=== PATIENT | male | born 1940 ===

== ENCOUNTER 2017-01-04 16:45 | Inpatient (IN) | payer OTHER, MEDICARE ==
[2017-01-04 16:45] VITALS: BMI 24.6
--- NOTE | 2017-01-04 17:47 | ED PDOC ---
Arrival/HPI - General Chief Complaint: Dizziness/Lightheaded Time Seen by Provider: 01/04/17 17:24 - History of Present Illness Narrative History of Present Illness (Text): 76 y/o M c history of MDS with platelets typically 40K, currently on antibiotics for cough p/w syncope. Patient was seen by Dr. Dominique today for throat discomfort and was prescribed a nasal spray. While waiting in line standing at the pharmacy for about 15 minutes, the patient suddenly felt lightheaded and lost consciousness. He awoke on the floor. He states he continues to feel lightheaded now. He denies pain, chest pain, palpitations, dyspnea, nausea, vomiting. Past Medical History - Infectious Disease Hx of Infectious Diseases: None - Tetanus Immunization Tetanus Immunization: Unknown - Cardiac Hx Hypertension: Yes - Pulmonary Hx Respiratory Disorders: No - Neurological Hx Neurological Disorder: No - HEENT Hx HEENT Disorder: No - Renal Hx Renal Disorder: No - Endocrine/Metabolic Hx Endocrine Disorders: No - Hematological/Oncological Hx Blood Transfusions: Yes Hx Blood Transfusion Reaction: Yes (PLATELETS) - Integumentary Hx Dermatological Disorder: No - Musculoskeletal/Rheumatological Hx Falls: No - Gastrointestinal Hx Gastrointestinal Disorders: No - Genitourinary/Gynecological Hx Genitourinary Disorders: Yes Other/Comment: KIDNEY STONE - Psychiatric Hx Psychophysiologic Disorder: No Hx Depression: No Hx Emotional Abuse: No Hx Physical Abuse: No Hx Substance Use: No - Past Surgical History Past Surgical History: No Previous - Surgical History Other/Comment: kidney stones - Anesthesia Hx Anesthesia: No Hx Anesthesia Reactions: No Hx Malignant Hyperthermia: No - Suicidal Assessment Feels Threatened In Home Enviroment: No Family/Social History Family/Social History: No Known Family HX Smoking Status: Never Smoked Hx Alcohol Use: Yes Hx Substance Use: No Hx Substance Use Treatment: No Allergies/Home Meds Allergies/Adverse Reactions: Allergies CONTRAST Allergy (Uncoded 12/20/16 16:35) SWELLING Home Medications: Home Meds Medication Instructions Recorded Confirmed Losartan/Hydrochlorothiazide 1 tab PO DAILY 09/26/12 12/14/16 [Hyzaar 100-12.5 Tablet] Amoxicillin 875 mg PO BID 01/05/17 01/05/17 Tobramycin [Tobrex] 2 drop OU BID 01/05/17 01/05/17 Review of Systems - Physician Review All systems were reviewed & negative as marked: Yes - Review of Systems Constitutional: absent: Fevers Cardiovascular: absent: Chest Pain Physical Exam - Physical Exam Narrative Physical Exam (Text): Constitutional: Appears weak, lightheaded. Head: Normocephalic. Atraumatic. Eyes: PERRL. ENT: Moist mucous membranes. Neck: Supple. Cardiovascular: Regular rate. Chest: No tenderness. Respiratory: Clear to auscultation bilaterally. GI: Soft. Nontender. Nondistended. Back: No CVA tenderness. Musculoskeletal: No tenderness or swelling of extremities. Skin: No rash. Neurologic: Alert, no focal deficit. Vital Signs Temp Pulse Resp BP Pulse Ox 01/04/17 22:45 98.7 F 76 20 114/59 L 94 L 01/04/17 17:26 98.1 F 85 18 120/62 100 Finger Stick Blood Glucose: 166 Medical Decision Making ED Course and Treatment: EKG NSR 93 bpm, no ST/T wave changes, no arrhythmia. Will obtain Head CT to rule out ICH especially due to thrombocytopenia. Will check labs and CXR for syncope. Dr. Hahn states she will consult on case. Admitting physician is Dr. Leija. Will sign out case to ER Night team at change of shift. Dr. Hahn will require a call back and Dr. Leija for admission. - Lab Interpretations Lab Results: 01/04/17 18:07 01/04/17 18:07 Lab Results 01/04/17 18:07: WBC 11.0 D, RBC 2.50 L, Hgb 8.1 L, Hct 23.4 L, MCV 93.6, MCH 32.4, MCHC 34.6, RDW 21.9 H, Plt Count 56 L, MPV 11.0, Gran % 81.1 H, Lymph % ( Auto) 11.3 L, [place] % (Auto) 7.3 H, Eos % (Auto) 0.1 L, Baso % (Auto) 0.2, Gran # 8.95 H, Lymph # 1.2, Brown # 0.8 H, Eos # 0.0, Baso # 0.02, PT 13.9 H, INR 1.29 H, APTT 33.8 H, Sodium 122 L, Potassium 3.5 L, Chloride 91 L, Carbon Dioxide 23, Anion Gap 12, BUN 15, Creatinine 0.8, Est GFR ( Amer) > 60, Est GFR (Non-Af Amer) > 60, Random Glucose 169 H, Calcium 8.3 L, Total Bilirubin 0.8, AST 38, ALT 29, Alkaline Phosphatase 120, Total Creatine Kinase 65, Troponin I < 0.01, Total Protein 8.6 H, Albumin 3.2, Globulin 5.4, Albumin/ Globulin Ratio 0.6 L 01/04/17 18:00: Blood Type O POSITIVE, Antibody Screen Negative, Crossmatch See Detail, BBK History Checked Patient has bt - RAD Interpretation Radiology Orders: 01/04/17 17:43 HEAD W/O CONTRAST [CT] Stat CHEST PORTABLE [RAD] Stat - Medication Orders Current Medication Orders: Albuterol/Ipratropium (Duoneb 3 Mg/0.5 Mg (3 Ml) Ud) 3 ml IH [id number] [facility] Last Admin: 01/05/17 10:16 Dose: Methylprednisolone (Solu-Medrol) 40 mg IV Q8 [facility] Last Admin: 01/05/17 08:35 Dose: 40 MG eMAR Start Stop Document 01/05/17 08:35 IBRAHIMA (Rec: 01/05/17 08:36 IBRAHIMA [id number]) Intravenous Solution Start Date 01/05/17 Start Time 08:35 End Date 01/05/17 End time 08:36 Total Infusion Time 1 Discontinued Medications Sodium Chloride (Sodium Chloride 0.9%) 1,000 mls @ 999 mls/hr IV .Q1H1M STA Stop: 01/04/17 21:56 Last Admin: 01/04/17 22:17 Dose: 999 MLS/HR eMAR Start Stop Document 01/04/17 22:17 EQ (Rec: 01/04/17 22:17 EQ [facility] [id number][place] Intravenous Solution Start Date 01/04/17 Start Time 22:17 Sodium Chloride (Hypertonic Saline 3%) 500 mls @ 40 mls/hr IV .[id number] [facility] Last Admin: 01/04/17 23:07 Dose: 40 MLS/HR eMAR Start Stop Document 01/04/17 23:07 LM (Rec: 01/04/17 23:08 LM [id number]) Intravenous Solution Start Date 01/04/17 Start Time 23:08 Ceftriaxone Sodium (Rocephin 1 Gram Ivpb) 100 mls @ 200 mls/hr IVPB STAT STA PRN Reason: Protocol Stop: 01/04/17 23:44 Last Admin: 01/05/17 00:31 Dose: 200 MLS/HR eMAR Start Stop Document 01/05/17 00:31 LM (Rec: 01/05/17 00:32 LM [id number]) Intravenous Solution Start Date 01/05/17 Start Time 00:31 End Date 01/05/17 End time 01:01 Total Infusion Time 30 Disposition/Present on Arrival - Present on Arrival Any Indicators Present on Arrival: No History of DVT/PE: No History of Uncontrolled Diabetes: No Urinary Catheter: No History of Decub. Ulcer: No History Surgical Site Infection Following: None - Disposition Have Diagnosis and Disposition been Completed?: Yes Diagnosis: Syncope, Hyponatremia Disposition: HOSPITALIZED Disposition Time: 19:00 Patient Problems: Current Active Problems Problem Status Diagnosed Fever Acute Hyponatremia Acute Symptomatic anemia Acute Syncope Acute Condition: GUARDED
[2017-01-04 18:08] LABS: ADD MANUAL DIFF? NO
[2017-01-04 18:12] LABS: BASO # 0.02 K/mm3 (0.0-2.0); BASO % 0.2 % (0.0-3.0); EOS % 0.1 % (1.5-5.0); GRAN # 8.95 (1.4-6.5); GRAN % 81.1 % (50.0-68.0); LYMPH # 1.2 (1.2-3.4); LYMPH % 11.3 % (22.0-35.0); MEAN CELL VOLUME 93.6 fL (80.0-105.0); MEAN CORPUSCULAR HEMOGLOBIN 32.4 pg (25.0-35.0); MEAN CORPUSCULAR HGB CONC 34.6 g/dl (31.0-37.0); MONO # 0.8 (0.1-0.6); MONO % 7.3 % (1.0-6.0); PLATELET COUNT 56 10^3/uL (120.0-450.0); RED CELL DISTRIBUTION WIDTH 21.9 % (11.5-14.5)
[2017-01-04 18:14] LABS: HEMATOCRIT 23.4 % (42.0-52.0)
[2017-01-04 18:23] LABS: ALB/GLOB RATIO 0.6 (1.1-1.8); ALKALINE PHOSPHATASE 120 U/L (38-133); ALT/SGPT 29 U/L (7-56); AST/SGOT 38 U/L (15-59); BILIRUBIN,TOTAL 0.8 mg/dL (0.2-1.3); BLOOD UREA NITROGEN 15 mg/dL (7-21); CALCIUM 8.3 mg/dL (8.4-10.5); CARBON DIOXIDE 23 mmol/L (21-33); CHLORIDE 91 mmol/L (98-107); GFR AFRICAN-AMERICAN > 60; GLUCOSE,RANDOM 169 mg/dL (70-110); POTASSIUM 3.5 mmol/L (3.6-5.0); SODIUM 122 mmol/L (132-148); TOTAL PROTEIN 8.6 g/dL (5.8-8.3)
[2017-01-04 18:28] LABS: INR 1.29 (0.93-1.08); PARTIAL THROMBOPLASTIN TIME 33.8 Seconds (23.7-30.8)
[2017-01-04 18:36] LABS: TROPONIN I < 0.01 ng/mL
--- NOTE | 2017-01-04 19:30 | CARD ---
APPROVED REPORT EKG Measurement Heart [id number] VT [id number] [id number] <Conclusion> Sinus rhythm with premature atrial complexes Otherwise normal ECG
[2017-01-04] MEDS ORDERED: Sodium Chloride 0.9% 1,000 ML IV STA (20:56)
--- NOTE | 2017-01-04 20:58 | ED PDOC ---
Physical Exam Vital Signs Reviewed: Yes Vital Signs Temp Pulse Resp BP Pulse Ox 01/04/17 17:26 98.1 F 85 18 120/62 100 Temperature: Afebrile Blood Pressure: Normal Pulse: Regular Respiratory Rate: Normal Appearance: Positive for: Well-Appearing, Non-Toxic, Comfortable Pain Distress: None Mental Status: Positive for: Alert and Oriented X 3 Finger Stick Blood Glucose: 166 Medical Decision Making ED Course and Treatment: 01/04/17 19:00 Case endorsed to me by Dr. Stern. Pt, past medical history of MDS, presented s/p syncopal episode while standing in line at pharmacy. Pt was being treated by ENT for a cough with antibiotics. Pending CT Head, hospital admission, re- assessment, and final disposition. 01/04/17 21:00 Reviewed radiology, CT Head shows: Suboptimal exam, secondary to motion artifact with no acute intracranial abnormality identified. Bilateral maxillary sinus fluid levels suggesting acute sinusitis. Case discussed with Dr. Leija, who is aware and agrees with plan. Accepts pt in to his service. Pt admitted to Telemetry for syncope and hyponatremic. Requests Dr. Jensen and Dr. Hahn on consult. - Lab Interpretations Lab Results: 01/04/17 18:07 01/04/17 18:07 Lab Results 01/04/17 18:07: WBC 11.0 D, RBC 2.50 L, Hgb 8.1 L, Hct 23.4 L, MCV 93.6, MCH 32.4, MCHC 34.6, RDW 21.9 H, Plt Count 56 L, MPV 11.0, Gran % 81.1 H, Lymph % ( Auto) 11.3 L, [place] % (Auto) 7.3 H, Eos % (Auto) 0.1 L, Baso % (Auto) 0.2, Gran # 8.95 H, Lymph # 1.2, [place] # 0.8 H, Eos # 0.0, Baso # 0.02, PT 13.9 H, INR 1.29 H, APTT 33.8 H, Sodium 122 L, Potassium 3.5 L, Chloride 91 L, Carbon Dioxide 23, Anion Gap 12, BUN 15, Creatinine 0.8, Est GFR ( Amer) > 60, Est GFR (Non-Af Amer) > 60, Random Glucose 169 H, Calcium 8.3 L, Total Bilirubin 0.8, AST 38, ALT 29, Alkaline Phosphatase 120, Total Creatine Kinase 65, Troponin I < 0.01, Total Protein 8.6 H, Albumin 3.2, Globulin 5.4, Albumin/ Globulin Ratio 0.6 L 01/04/17 18:00: Blood Type Pending, Antibody Screen Pending, BBK History Checked Patient has bt I have reviewed the lab results: Yes - RAD Interpretation Narrative RAD Interpretations (Text): CT Head shows: Brain: Mild volume loss. No acute hemorrhage. No acute infarct. Johnnie cisterna magna versus small para midline retrocerebellar arachnoid cyst. Ventricles: No hydrocephalus. Bones/joints: Unremarkable. No acute fracture. Soft tissues: Unremarkable. Vasculature: Calcification in the wall of the distal internal carotid arteries. Sinuses: Strandy septation-like densities in the maxillary sinus bilaterally with fluid levels. Mild maxillary and ethmoid sinus mucosal thickening. Mastoid air cells: Unremarkable as visualized. No mastoid effusion. IMPRESSION: Suboptimal exam, secondary to motion artifact with no acute intracranial abnormality identified. Radiology Orders: 01/04/17 17:43 HEAD W/O CONTRAST [CT] Stat CHEST PORTABLE [RAD] Stat Forestry Support Specialist: Radiologist - Medication Orders Current Medication Orders: Sodium Chloride (Sodium Chloride 0.9%) 1,000 mls @ 999 mls/hr IV .Q1H1M STA Stop: 01/04/17 21:56 Sodium Chloride (Hypertonic Saline 3%) 500 mls @ 40 mls/hr IV .[id number] HUANG Disposition/Present on Arrival - Present on Arrival Any Indicators Present on Arrival: No History of DVT/PE: No History of Uncontrolled Diabetes: No Urinary Catheter: No History of Decub. Ulcer: No History Surgical Site Infection Following: None - Disposition Have Diagnosis and Disposition been Completed?: Yes Diagnosis: Syncope, Hyponatremia Disposition: HOSPITALIZED Disposition Time: 21:13 Patient Plan: Admission Patient Problems: Current Active Problems Problem Status Diagnosed Fever Acute Symptomatic anemia Acute Condition: STABLE Discharge Instructions (ExitCare): Syncope (ED) Referrals: Rekha Solis MD [Primary Care Provider] - Follow up with primary
[2017-01-04] MEDS ORDERED: Sodium Chloride 0.9% 1,000 ML IV SCH (21:00)
[2017-01-04] MEDS ORDERED: Sodium Chloride 3% 500 ML IV SCH (21:15)
--- NOTE | 2017-01-04 23:07 | CP.PCM.PCO ---
Physician Communication Note - Physician Communication Note Physician Communication Note: Received aranesp 200mcg on 01/02/2017, 1 unit PRBC today. headCT neg bleed.
[2017-01-04] MEDS ORDERED: cefTRIAXone 1 gm 100 ML IVPB STA (23:15)
--- NOTE | 2017-01-05 01:05 | CP.PCM.PN ---
Subjective - Date & Time of Evaluation Date of Evaluation: 01/05/17 Time of Evaluation: 01:05 - Subjective Subjective: S:Patient was seen at bedside. Needs consent for blood transfusion. Has no complaints now. Pertinent medical record was reviewed. O: Last Vital Signs 3 Temp 98.7 F 01/04/17 22:45 Pulse 70 01/04/17 22:50 Resp 16 01/04/17 22:50 BP 112/63 01/04/17 22:50 Pulse Ox 98 01/04/17 22:50 Alert, oriented , not in distress. LUNGS:Normal breathing pattern. NEURO:Speech normal. A:Anemia. consent for blood transfusion. P:A consent for blood transfusion obtained in presence of nurse Kiarra after discussion. One unit PRBC now. Objective - Vital Signs/Intake and Output Vital Signs (last 24 hours): Temp Pulse Resp BP Pulse Ox 98.7 F 70 16 112/63 98 01/04/17 22:45 01/04/17 22:50 01/04/17 22:50 01/04/17 22:50 01/04/17 22:50 - Medications Medications: Current Medications Sodium Chloride (Hypertonic Saline 3%) 500 mls @ 40 mls/hr IV .[id number] HUANG Last Admin: 01/04/17 23:07 Dose: 40 mls/hr - Labs Labs: PT 13.9 Seconds (9.9-11.8) H 01/04/17 18:07 INR 1.29 (0.93-1.08) H 01/04/17 18:07 APTT 33.8 Seconds (23.7-30.8) H 01/04/17 18:07
--- NOTE | 2017-01-05 06:35 | HP ---
HISTORY OF PRESENT ILLNESS: The patient is a 76-year-old male. The patient was seen in the Emergency Room. He apparently had passed out in the pharmacy situated in the [facility]. The patient was brought to the Emergency Room. He was awake, but lethargic. The patient denies any injuries. His was with him at that time. PAST MEDICAL HISTORY: Hypertension. The patient is also treated for myelodysplastic syndrome. The patient has chronic lung disease with recurrent respiratory infections in the recent past. The patient also has history of hypertension, as mentioned. Has a past history of pneumonia. The patient also has a history of chronic anemia associated with myelodysplastic syndrome with thrombocytopenia. ALLERGIES: CONTRAST DYE, according to the history. MEDICATIONS: The patient's medication for blood pressure is losartan. PHYSICAL EXAMINATION: VITAL SIGNS: At this time, the pulse is 85, blood pressure 120/62, respirations 18, O2 sat 100%. The patient's temperature 98.1. HEENT: Head is normocephalic. No evidence of any masses or injury is noted. NECK: The thyroid is not enlarged. JVP is flat. Carotid pulses are present. No lymphadenopathy noted. LUNGS: Trachea central. Breath sounds vesicular. No adventitious sounds are heard. HEART: NSR. S1, S2 present. No murmurs heard. ABDOMEN: Soft. Liver, spleen not palpable. CENTRAL NERVOUS SYSTEM: The patient is conscious, lethargic, but no focal neurological deficit. LABORATORY DATA: The patient's blood work shows a hemoglobin 8.1. The patient' s recent hemoglobin done in the hospital a couple of weeks ago was 9.5. Patient 's white count 11,000. His platelet count 56,000. The patient's differential shows 81% polys. His chemistry is significant finding the sodium is 122, potassium 3.5. The patient's glucose is 169. His total protein 8.6. Urinalysis is not done at this time. OBJECTIVE: Patient has symptoms of chronic respiratory infection and sinusitis. The patient was seen by the ENT surgeon this afternoon, and the patient also has evidence of conjunctivitis in the right eye. The patient has a chronic cough which is productive ASSESSMENT/PLAN: At this time, the patient's infection could be the cause of the hyponatremia. His losartan/hctz could also be contributing to the hyponatremia. We will hold losartan/hctz and we will admit the patient to telemetry. We will give him antibiotics. Will have consultation with actuarial manager, wedding florist, plant puller, infectious disease, and manage the patient's clinical condition as we see. His troponin levels at the time of admission the Emergency Room was not significant. His overall prognosis is guarded. His condition is clinically in suspense because the etiology of the MDS is not known and also the patient has had recurrent admissions to the hospital with some respiratory infection, weakness, and anemia. His CT scan of the head does not reveal any pathology in the brain, but patient has evidence of a sinus infection with the fluid collection in the sinuses. Mervin Solis MD cc: [id number] TT: 01/05/2017 06:35:03 jn MTDD
[2017-01-05 06:49] LABS: PH,URINE 6.5 (4.7-8.0); URINE BILIRUBIN NEGATIVE (NEGATIVE); URINE BLOOD SMALL (NEGATIVE); URINE GLUCOSE (UA) NEGATIVE (NEGATIVE); URINE KETONE NEGATIVE (NEGATIVE); URINE LEUKOCYTE ESTERASE NEGATIVE Leu/uL (NEGATIVE); URINE PROTEIN NEGATIVE mg/dL (<30 mg/dL); URINE UROBILINOGEN 0.2 E.U./dL (<1 E.U./dL)
[2017-01-05 07:01] LABS: URINE APPEARANCE CLEAR (CLEAR); URINE COLOR YELLOW (YELLOW)
[2017-01-05 07:04] LABS: URINE BACTERIA TRACE (NEG); URINE EPITHELIAL CELLS 0 - 2 /hpf (0-5); URINE WBC 0 - 2 /hpf (0-6)
--- NOTE | 2017-01-05 07:12 | CT ---
PROCEDURE: CT HEAD WITHOUT CONTRAST. HISTORY: Trauma/fall, macro Medical thrombocytopenia. COMPARISON: 09/26/2012 TECHNIQUE: Axial computed tomography images were obtained through the head/brain without intravenous contrast. Radiation dose: Total exam DLP = 1451.69 mGy-cm. FINDINGS: HEMORRHAGE: No intracranial hemorrhage. BRAIN: No mass effect or edema. Cortical atrophy, periventricular small vessel disease VENTRICLES: Unremarkable. No hydrocephalus. CALVARIUM: Unremarkable. PARANASAL SINUSES: Bilateral, acute maxillary sinusitis. MASTOID AIR CELLS: Unremarkable as visualized. No inflammatory changes. OTHER FINDINGS: None. IMPRESSION: No acute intracranial abnormalities. No significant findings to account for the clinical presentation. Concordant results (preliminary interpretation) provided by [facility]. Procedure Completed: 20:09 Preliminary ([facility]) Report: Dictated and Authenticated: 20:42. Final Interpretation: 07:11. January 05, 2017.
--- NOTE | 2017-01-05 08:11 | CP.PCM.PN ---
Subjective - Date & Time of Evaluation Date of Evaluation: 01/05/17 Time of Evaluation: 07:50 - Subjective Subjective: Patient is seen this morning in room 261 bed 1. He is complaining of sore throat and cough. He also feels weak. He was given 1 unit of blood last night. Objective - Vital Signs/Intake and Output Vital Signs (last 24 hours): Temp Pulse Resp BP Pulse Ox 99.3 F 75 21 109/66 99 01/05/17 06:04 01/05/17 06:04 01/05/17 06:04 01/05/17 06:04 01/05/17 05:30 Intake and Output: 01/05/17 01/05/17 06:59 18:59 Intake Total 1180 Output Total 600 Balance 580 - Medications Medications: Current Medications Albuterol/Ipratropium (Duoneb 3 Mg/0.5 Mg (3 Ml) Ud) 3 ml IH [id number] HUANG Sodium Chloride (Hypertonic Saline 3%) 500 mls @ 40 mls/hr IV .[id number] HUANG Last Admin: 01/04/17 23:07 Dose: 40 mls/hr - Labs Labs: PT 13.9 Seconds (9.9-11.8) H 01/04/17 18:07 INR 1.29 (0.93-1.08) H 01/04/17 18:07 APTT 33.8 Seconds (23.7-30.8) H 01/04/17 18:07 - Constitutional Appears: No Acute Distress - Head Exam Head Exam: ATRAUMATIC, NORMOCEPHALIC - Respiratory Exam Respiratory Exam: Clear to Ausculation Bilateral, NORMAL BREATHING PATTERN - Cardiovascular Exam Cardiovascular Exam: +S1, +S2 - GI/Abdominal Exam GI & Abdominal Exam: Soft, Normal Bowel Sounds. absent: Tenderness - Neurological Exam Neurological Exam: Alert, Awake, Oriented x3 Assessment and Plan - Assessment and Plan (Free Text) Assessment: Syncope Hyponatremia Anemia MDS Sinusitis GERD Plan: Patient is seen this morning. He is still complaining of cough and sore throat. He says he went to the ENT doctor as outpatient and was told he had sinusitis and his sinuses were drained. He received IV rocephin last night. Consult infectious disease. He does have a low grade fever of 99.3. Patient will also have a pulmonary consult for the cough, as he has been having a persistent cough over the last few months. Patient passed out yesterday and was found to have a sodium of 122 in the ER. Hypertonic saline was given. Awaiting today's sodium level and nephrology consultation. Hemoglobin was 8 and patient was transfused 1 unit PRBC early this morning by Dr. Hahn, the superintendent pier, who is treating him for myelodysplastic syndrome. Awaiting today' s blood count.
--- NOTE | 2017-01-05 08:20 | RAD ---
HISTORY: syncope COMPARISON: Comparison is made to the previous study dated 01/02/2017 FINDINGS: LUNGS: Interval worsening of patchy opacities at both lungs since the previous exam. Findings suspicious for aspiration or infectious process. PLEURA: No significant pleural effusion identified, no pneumothorax apparent. CARDIOVASCULAR: Normal. OSSEOUS STRUCTURES: No significant abnormalities. VISUALIZED UPPER ABDOMEN: Normal. OTHER FINDINGS: None. IMPRESSION: Worsening patchy opacities in the lungs since the previous study.
[2017-01-05] MEDS: MethylPREDNISolone 40 mg Vial IV SCH ×3 (08:35→22:29)
[2017-01-05 09:03] LABS: ADD MANUAL DIFF? NO
[2017-01-05 09:07] LABS: BASO # 0.02 K/mm3 (0.0-2.0); BASO % 0.4 % (0.0-3.0); EOS % 0.2 % (1.5-5.0); GRAN # 3.55 (1.4-6.5); GRAN % 64.3 % (50.0-68.0); HEMATOCRIT 26.9 % (42.0-52.0); LYMPH # 1.6 (1.2-3.4); LYMPH % 28.4 % (22.0-35.0); MEAN CELL VOLUME 91.8 fL (80.0-105.0); MEAN CORPUSCULAR HEMOGLOBIN 31.4 pg (25.0-35.0); MEAN CORPUSCULAR HGB CONC 34.2 g/dl (31.0-37.0); MEAN PLATELET VOLUME 10.2 fl (7.0-11.0); MONO # 0.4 (0.1-0.6); MONO % 6.7 % (1.0-6.0); PLATELET COUNT 51 10^3/uL (120.0-450.0); RED CELL DISTRIBUTION WIDTH 21.2 % (11.5-14.5); WHITE BLOOD COUNT 5.5 10^3/ul (4.5-11.0)
[2017-01-05 09:34] LABS: ALB/GLOB RATIO 0.6 (1.1-1.8); ALKALINE PHOSPHATASE 99 U/L (38-133); ALT/SGPT 28 U/L (7-56); AST/SGOT 37 U/L (15-59); BILIRUBIN,TOTAL 1.1 mg/dL (0.2-1.3); BLOOD UREA NITROGEN 11 mg/dL (7-21); CALCIUM 8.5 mg/dL (8.4-10.5); CARBON DIOXIDE 24 mmol/L (21-33); CHLORIDE 99 mmol/L (98-107); GFR AFRICAN-AMERICAN > 60; GLUCOSE,RANDOM 133 mg/dL (70-110); POTASSIUM 3.9 mmol/L (3.6-5.0); SODIUM 133 mmol/L (132-148); TOTAL PROTEIN 8.6 g/dL (5.8-8.3)
[2017-01-05] MEDS: Albuterol-Ipratrop 3 mg / 0.5 (3 ml) UD IH SCH ×3 (10:16→19:38)
--- NOTE | 2017-01-05 10:19 | CON ---
DATE: 01/05/2017 REASON FOR CONSULTATION: Cough. REFERRING PHYSICIAN: Dr. Solis. HISTORY OF PRESENT ILLNESS: The patient is a 76-year-old male with past medical history significant for recurrent bronchitis, myelodysplastic syndrome, chronic anemia, chronic thrombocytopenia, hypertension, who presents to [facility] with increasing cough and sputum production for the past week. The patient is not short of breath at rest. However, he does state to mild dyspnea on exertion. There is no history of chest pain, coughing up of blood or chest pain -- made worse with deep respirations. There is no history of temperatures, chills or infectious exposure at home. However, the patient does have low-grade temperatures in the hospital. No history of night sweats, weight loss or appetite change prior to the above events. No history of leg or calf pains. The patient did have a syncopal episode yesterday. He states firmly that the syncopal episode was not preceded by a cough. No history of diaphoresis. No history of recent travel or trauma. REVIEW OF SYSTEMS: No history of nausea, vomiting or diarrhea. No acute urinary symptoms. No new musculoskeletal complaints. Rest of the review of systems is negative. ALLERGIES: IV CONTRAST. SOCIAL HISTORY: Positive for tobacco, negative for alcohol. FAMILY HISTORY: No inheritable diseases. HOME MEDICATIONS: Include amoxicillin, Tobrex, and Hyzaar. PHYSICAL EXAMINATION: GENERAL: The patient appears comfortable at rest. He is not short of breath. VITAL SIGNS: Temperature is 99.3, pulse 75, respirations 18/20, blood pressure 109/66. Oxygen saturation on nasal cannula is 99%. HEENT: Normocephalic, atraumatic. NECK: No JVD. CARDIOVASCULAR: Positive S1, S2. No S3. LUNGS: Scattered rhonchi and wheezing bilaterally. EXTREMITIES: No clubbing, cyanosis, or edema. Calves are nontender to palpation. GASTROINTESTINAL: Abdomen is soft, nontender, nondistended. Bowel sounds are positive. SKIN: No acute rash. NEUROLOGIC: Limited at the present time. PERTINENT LABORATORY DATA: Chest x-ray was done and reviewed. There is a small patchy infiltrate noted at the left lower lobe. CBC: White count 11.0, hemoglobin 8.1, hematocrit 23.4, platelets of 56,000. INR 1.29. Complete metabolic profile: Sodium 122, potassium 3.5, chloride 91, glucose 169, calcium 8.3, total protein 8.6. Rest of the metabolic profile is within normal limits. IMPRESSION: 1. Acute bronchitis. 2. Rule out pneumonia -- left lower lobe. 3. Syncope. 4. Myelodysplastic syndrome. 5. Anemia. 6. Thrombocytopenia. PLAN: The patient presents to [facility] with a 1-week history of worsening pulmonary symptoms. In addition, while at the pharmacy yesterday, he had a syncopal episode. He then presented to [facility] and was admitted for additional evaluation and treatment. I did review the chest x-ray as above. There appears to be a small patchy infiltrate noted at the left lower lobe. Dr. Hunter, infectious disease, has been called on the case. I will also order a stat procalcitonin level -- to help us discern whether we are dealing with an acute pneumonia or not. On physical exam, the patient is in moderate bronchospasm. I will continue with the current nebulizer treatments and add intravenous steroids this morning. Renal and hematology evaluations have been ordered. I would also consider a neurologic evaluation at this point in time. Repeat a.m. labs are pending. The patient does feel better this morning -- compared to the past few days. Additional pulmonary intervention will be based on the clinical status of the patient. I will discuss the above with Dr. Solis. Thank you very much for this pulmonary consultation. Jim Landry MD cc: [id number] TT: 01/05/2017 10:19:19 Confirmation # [id number] Dictation # [id number] jn MTDD
[2017-01-05 11:08] LABS: THYROID STIMULATING HORMONE 1.16 mIU/mL (0.46-4.68)
--- NOTE | 2017-01-05 11:58 | CON ---
DATE: 01/05/2017 The patient admitted for Dr. Solis. REFERRING PHYSICIAN: Dr. Solis. REASON FOR CONSULTATION: Evaluation of a patient unknown to me who presents with a syncopal episode and hyponatremia in the setting of excessive fluid intake and diuretic therapy. 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 The patient states that he was up and about and had a syncopal episode with no war adolph. He was brought to the Emergency Room, was found to have a sodium level of 122. He was admitte d for evaluation of syncope, perhaps worsening anemia secondary to his myelodysplastic syndrome and h yponatremia. The patient admits to excessive p.o. fluid intake. He denies any nausea, vomiting or d iarrhea. He was taking diuretic therapy. The patient was treated with normal saline and subsequentl y with 3% saline. His sodium level today is 133. No diagnostics were done. We are asked to evaluat e patient for his hyponatremia. PAST MEDICAL HISTORY: Significant for that of hypertension, reflux, myelodysplastic syndrome with an emia, history of chronic lung disease. MEDICATIONS: At home include that of amoxicillin, TobraDex and Hyzaar 100/12.5. ALLERGIES: THE PATIENT IS ALLERGIC TO CONTRAST/DYE. CURRENT MEDICATIONS IN HOSPITAL: Include that of albuterol, hypertonic saline at 40 mL an hour, Solu -Medrol. SOCIAL HISTORY: No history of cigarettes presently no history of alcohol use. The patient was a pas t cigarette smoker. FAMILY HISTORY: Father of chronic kidney disease. Mother of heart disease. REVIEW OF SYSTEMS: GENERAL: The patient states appetite and weight have been stable. ENT: Denies any hearing or visual problems. PULMONARY: Denies any shortness of breath at rest. History of chronic lung disease. No history of COPD, asthma, emphysema. CARDIAC: No known history of cardiac disease. GASTROINTESTINAL: No nausea, vomiting, no abdominal pain, no diarrhea, no constipation. GENITOURINARY: No history of chronic kidney disease. No history of prostate disease. ENDOCRINE: No history of diabetes. MUSCULOSKELETAL: No complaints. NEUROLOGIC: No complaints other than what is noted above, syncopal episode. No history of CVA, TIA, seizures. HEMATOLOGIC AND ONCOLOGIC: History of myelodysplastic syndrome with anemia. PSYCHIATRIC: History is negative. PHYSICAL EXAMINATION: GENERAL: The patient is currently seen on telemetry. He is in no acute distress, lying supine in be d 3% saline is infusing at 40 mL an hour. On telemetry, the patient remains in a sinus rhythm with A PCs. VITAL SIGNS: Blood pressure off blood pressure medication 109/66, temperature 99.3, respiratory rate 21 with a pulse of 75. HEENT: Normocephalic, atraumatic. Conjunctivae are pale. Sclerae are nonicteric. Pupils equal, re active to light and accommodation. Extraocular muscles are intact. Posterior pharynx is normal. NECK: Supple without neck vein distention. No thyromegaly, no lymphadenopathy, no bruits. CHEST: Clear to auscultation and percussion with no rhonchi or wheezing. No rales auscultated. CARDIOVASCULAR: Shows a regular rate and rhythm without murmurs, rubs, or gallops. ABDOMEN: Soft. Bowel sounds normal. No rebound, no guarding. No masses appreciated. BACK: No CVAT, no spinal tenderness. EXTREMITIES: Show no cyanosis, no clubbing or edema. Distal lower extremity pulses are 1+ to 2+ betty aterally. NEUROLOGIC: Shows him to be alert, oriented x 3 with no gross focal motor or sensory deficits noted. LABORATORY DATA AND IMAGING: Admitting head CT showed no acute changes. Admitting chest x-ray showe d bilateral infiltrates, likely chronic in nature. Admitting EKG showed a normal sinus rhythm with A PCs. Labs: CBC: White blood cell count 11.0, today 5.5, hemoglobin was 8.1, transfused up to a hem oglobin of 9.2. Platelet count is 51,000. Coags: PT 13.9, PTT 33.8. Chemistries: Sodium 122 on a dmission with a potassium of 3.5. Today, sodium is 133 with potassium of 3.9. The patient is status post IV fluid normal saline and currently receiving 3%. BUN is 11 with a creatinine of 0.7. Calciu m is 8.5. Glucose is 133. Liver enzymes are normal. Albumin is 3.1. Urines were sent on admission . Urine was negative. Urine electrolytes were not sent. ASSESSMENT: 1. Status post syncopal episode, etiology not entirely clear. The patient is being evaluated by his radiation oncologist. Perhaps syncopal episode related to anemia. No apparent cardiac event and no apparen t neurological event. It is unlikely that the hyponatremia is the cause of his syncope. 2. Hyponatremia. The patient appears to be euvolemic. There is no evidence for any gastrointestina l losses. No nausea, vomiting, no diarrhea. No polyuria. The patient states he is a copious fluid drinker, mostly water. He also had been on a blood pressure medication with a diuretic. Back in Novary of this year, the patient did have a sodium level of 130, but never as low as 122. For right n ow, it is safe to maintain patient off of diuretic therapy. When blood pressure medication is restar tone, perhaps he will go back on Cozaar instead of Hyzaar. I have cautioned patient to try and limit his p.o. fluid intake. Should his sodium level fall once again, I would order the diagnostics which would include a urine sodium, urine osmolality, serum uric acid. I will check his thyroid profile. 3. Hypertension. Blood pressure control is excellent. If anything, the patient is now borderline h ypotensive. Blood pressure medication is on hold. When the patient does restart blood pressure medi cation, he should not take a diuretic. 4. History of myelodysplastic syndrome with anemia. The patient is being followed by hematology. Mike kline is presently on steroids. He received 1 unit of packed red blood cells with an improvement in his hemoglobin. 5. Gastroesophageal reflux disease, currently stable. The patient is requiring no medication. 6. History of chronic lung disease. The patient has been seen and will be evaluated by pulmonary. It is unclear whether or not there is any acute infiltrate superimposed on his chronic lung disease. PLAN: 1. For right now, hold blood pressure medications and when blood pressure medication is restarted, amanda kline will not use a diuretic. Cozaar alone would suffice. 2. Check thyroid function profile. Check uric acid level. 3 Should his sodium drop, I will repeat his urine studies and this time check for urine sodium, urin e osmolality. 4. The patient may have 3% discontinued after infusion of whatever is remaining in the current bag. 5. P.o. fluid restriction. 6. Should patient cross tie turner to have SIADH and his sodium levels become low again and refractory to st andard measures, one can consider using tolvaptan 15 mg a day. 7. Continue to follow labs while an inpatient. 8. Continued workup for his syncopal episode. Thank you for letting me partake and share in the care of your patient. Faraz Hathaway MD cc: [id number] TT: 01/05/2017 11:58:22 Confirmation # [id number] Dictation # [id number] tn
--- NOTE | 2017-01-05 13:56 | CP.PCM.CON ---
History of Present Illness - History of Present Illness History of Present Illness: 6 year old male with PMH of HTN, GERD, myelodysplastic syndrome was recently admitted in [facility] because of sepsis from systemic viral illness , probably Influenza. The patient did well and went home. Patient has been having cough with clear phlegm for the past 2 days without fever or nausea. Yesterday, while waiting in line at a pharmacy for his prescriptions, he apparently fainted and lost consciousness. He denies headache or dizziness, no chest pain or palpitations, no note of convulsions, no bladder or bowel incontinence, no diarrhea, no dysuria, no hematuria, no sore throat, no rhinorrhea. In the ED, chest xray showed some infiltrates. Infectious Diseases consult is requested to further evaluate and manage. Review of Systems - Review of Systems All systems: reviewed and no additional remarkable complaints except (as per HPI ) Past Patient History - Infectious Disease Hx of Infectious Diseases: None - Tetanus Immunizations Tetanus Immunization: Unknown - Past Medical History & Family History Past Medical History?: Yes Pertinent Family History: HTN on both sides of the family - Past Social History Smoking Status: Never Smoked Alcohol: Occasional Drugs: Denies Home Situation {Lives}: With Family - CARDIAC Hx Hypertension: Yes - PULMONARY Hx Respiratory Disorders: No - NEUROLOGICAL Hx Neurological Disorder: No - HEENT Hx HEENT Problems: No - RENAL Hx Chronic Kidney Disease: No - ENDOCRINE/METABOLIC Hx Endocrine Disorders: No - HEMATOLOGICAL/ONCOLOGICAL Hx Blood Transfusions: Yes Hx Blood Transfusion Reaction: Yes (PLATELETS) - INTEGUMENTARY Hx Dermatological Problems: No - MUSCULOSKELETAL/RHEUMATOLOGICAL Hx Falls: Yes - GASTROINTESTINAL Hx Gastrointestinal Disorders: No - GENITOURINARY/GYNECOLOGICAL Hx Genitourinary Disorders: Yes Other/Comment: KIDNEY STONE - PSYCHIATRIC Hx Psychophysiologic Disorder: No Hx Depression: No Hx Emotional Abuse: No Hx Physical Abuse: No Hx Substance Use: No - SURGICAL HISTORY Other/Comment: kidney stones - ANESTHESIA Hx Anesthesia: No Hx Anesthesia Reactions: No Hx Malignant Hyperthermia: No Meds Allergies/Adverse Reactions: Allergies Allergy/AdvReac Type Severity Reaction Status Date / Time CONTRAST Allergy SWELLING Uncoded 12/20/16 16:35 - Medications Medications: Current Medications Albuterol/Ipratropium (Duoneb 3 Mg/0.5 Mg (3 Ml) Ud) 3 ml IH [id number] HUANG Sodium Chloride (Hypertonic Saline 3%) 500 mls @ 40 mls/hr IV .[id number] [facility] Last Admin: 01/04/17 23:07 Dose: 40 mls/hr Methylprednisolone (Solu-Medrol) 40 mg IV Q8 [facility] Last Admin: 01/05/17 08:35 Dose: 40 mg Physical Exam - Constitutional Appears: Non-toxic, No Acute Distress - Head Exam Head Exam: NORMAL INSPECTION - ENT Exam ENT Exam: Mucous Membranes Moist - Neck Exam Neck exam: Negative for: Lymphadenopathy, Meningismus - Respiratory Exam Respiratory Exam: Decreased Breath Sounds - Cardiovascular Exam Cardiovascular Exam: +S1, +S2 - GI/Abdominal Exam GI & Abdominal Exam: Soft. absent: Tenderness Results - Vital Signs Recent Vital Signs: Last Vital Signs Temp 99.3 F 01/05/17 06:04 Pulse 75 01/05/17 06:04 Resp 21 01/05/17 06:04 BP 109/66 01/05/17 06:04 Pulse Ox 99 01/05/17 05:30 - Labs Result Diagrams: 01/05/17 08:50 01/05/17 08:50 Labs: Laboratory Results - last 24 hr 01/05/17 06:30 Urine Color Yellow Urine Appearance Clear Urine pH 6.5 Ur Specific Reese 1.015 Urine Protein Negative Urine Glucose (UA) Negative Urine Ketones Negative Urine Blood Small H Urine Nitrate Negative Urine Bilirubin Negative Urine Urobilinogen 0.2 Ur Leukocyte Esterase Negative Urine RBC 1 - 3 Urine WBC 0 - 2 Ur Epithelial Cells 0 - 2 Urine Bacteria Trace Assessment & Plan - Assessment and Plan (Free Text) Plan: Assessment Consider healthcare-associated pneumonia in a patient with acute bronchitis Syncope, etiology to be determined S/P systemic viral illness with probable Influenza HTN GERD myelodysplastic syndrome Plan start patient on Cefepime and Doxycycline pending blood cx, Procalcitonin; reviewed CXR Will discuss with Dr. Landry Will follow clinically
[2017-01-05] MEDS: Cefepime 1gm in NS 100ml 100 ML IVPB SCH ×2 (15:47→22:28)
[2017-01-06] MEDS: Albuterol-Ipratrop 3 mg / 0.5 (3 ml) UD IH SCH ×4 (02:56→19:21)
[2017-01-06] MEDS: Cefepime 1gm in NS 100ml 100 ML IVPB SCH ×3 (05:05→21:59)
[2017-01-06] MEDS: MethylPREDNISolone 40 mg Vial IV SCH (05:06)
[2017-01-06 07:28] LABS: HEMATOCRIT 27.9 % (42.0-52.0); MEAN CELL VOLUME 91.5 fL (80.0-105.0); MEAN CORPUSCULAR HEMOGLOBIN 31.5 pg (25.0-35.0); MEAN CORPUSCULAR HGB CONC 34.4 g/dl (31.0-37.0); MEAN PLATELET VOLUME 11.4 fl (7.0-11.0); WHITE BLOOD COUNT 7.8 10^3/ul (4.5-11.0)
[2017-01-06 08:19] LABS: ALB/GLOB RATIO 0.6 (1.1-1.8); ALKALINE PHOSPHATASE 97 U/L (38-133); ALT/SGPT 20 U/L (7-56); AST/SGOT 33 U/L (15-59); BILIRUBIN,TOTAL 0.6 mg/dL (0.2-1.3); BLOOD UREA NITROGEN 18 mg/dL (7-21); CALCIUM 8.6 mg/dL (8.4-10.5); CARBON DIOXIDE 22 mmol/L (21-33); CHLORIDE 103 mmol/L (98-107); GFR AFRICAN-AMERICAN > 60; GLUCOSE,RANDOM 277 mg/dL (70-110); MAGNESIUM 1.9 mg/dL (1.7-2.2); PHOSPHOROUS 3.5 mg/dL (2.5-4.5); POTASSIUM 3.9 mmol/L (3.6-5.0); SODIUM 133 mmol/L (132-148); TOTAL PROTEIN 8.1 g/dL (5.8-8.3)
[2017-01-06] MEDS: MethylPREDNISolone 40 mg Vial IVP SCH ×2 (09:15→22:01)
--- NOTE | 2017-01-06 09:49 | PN ---
DATE: 01/06/2017 SUBJECTIVE: The patient appears very comfortable this morning. He is not short of breath at rest. PHYSICAL EXAMINATION: VITAL SIGNS: Temperature is 98.0, pulse 73, respirations 18, blood pressure 125 /73. Oxygen saturation on nasal cannula is 98%. HEENT: Normocephalic, atraumatic. No JVD. CARDIOVASCULAR: Positive S1, S2. No S3. LUNGS: Significant decrease in the rhonchi and wheezing bilaterally. EXTREMITIES: No clubbing, cyanosis, or edema. Calves are nontender to palpation. GASTROINTESTINAL: Abdomen is soft, nontender, nondistended. Bowel sounds are positive. SKIN: No acute rash. NEUROLOGIC: Limited at the present time. IMPRESSION: 1. Acute bronchitis. 2. Rule out pneumonia -- left lower lobe. 3. Syncope. 4. Myelodysplastic syndrome. 5. Anemia. 6. Thrombocytopenia. PLAN: The patient appears very comfortable this morning. He is not short of breath at rest. He states he is feeling much better overall. On physical exam , his bronchospasm is significantly less. In addition, the oxygen saturation on nasal cannula is 98%. I will continue with the current nebulizer treatments and decrease the intravenous steroids this morning. I would continue with the antibiotic coverage as per infectious disease. Input by Dr. Springer is noted. Interesting to note -- the procalcitonin is negative. However, I would still continue with the current antibiotic coverage.. Input by Dr. Hathaway (renal) is also noted. Clinical status of the patient is certainly improved -- compared to the initial presentation. I will discuss the above with Dr. Solis. Jim Landry MD cc: [phone] TT: 01/06/2017 09:48:34 Confirmation # [id number] Dictation # [id number] en MTDD
--- NOTE | 2017-01-06 10:22 | PN ---
DATE: 01/06/2017 The patient is a 76-year-old [place]ian male who was admitted to the hospital with cough, shortness of breath. The patient had a fall after syncope while trying to purchase medications from the pharmacy. The patient was brought to the Emergency Room and admitted for further evaluation and treatment. The patient is currently being treated for syncope. The patient is also getting treatment for severe bronchitis. PHYSICAL EXAMINATION: VITAL SIGNS: The pulse is 58, blood pressure is 126/72, temperature 97.3, respirations 20. LUNGS: There is bilateral rhonchi and basal crepitations. HEART: Normal sinus rhythm. ABDOMEN: Soft. Liver, spleen not palpable. CENTRAL NERVOUS SYSTEM: The patient has no focal deficit. The patient is undergoing investigation and treatment for myelodysplastic syndrome. The patient has history of chronic respiratory infection, hypertension. The patient was also found to have severe hyponatremia. LABORATORY DATA: Hemoglobin is 9.3. He had 1 unit of blood prescribed by the crop scout. The patient's chemistry: The blood sugar was 294, potassium was 3.9 and the sodium is up to 133 on admission. His sodium was 122. The patient seems to be improving clinically. We will continue current management. Pulmonology has recommended steroid treatment for his respiratory condition at this time. We will follow up. Mervin Solis MD cc: [phone] TT: 01/06/2017 10:22:37 Confirmation # [id number] Dictation # [id number] jenny CORMIER
--- NOTE | 2017-01-06 13:47 | CP.PCM.PN ---
Subjective - Date & Time of Evaluation Date of Evaluation: 01/06/17 Time of Evaluation: 09:25 - Subjective Subjective: Resting comfortably in bed, no fevers overnight, less cough, no shortness of breath at rest. Objective - Vital Signs/Intake and Output Vital Signs (last 24 hours): Temp Pulse Resp BP Pulse Ox 98.0 F 73 18 125/73 98 01/05/17 20:00 01/05/17 20:00 01/05/17 20:00 01/05/17 20:00 01/05/17 20:00 Intake and Output: 01/05/17 01/06/17 18:59 06:59 Intake Total 600 Output Total 450 Balance 150 - Medications Medications: Current Medications Albuterol/Ipratropium (Duoneb 3 Mg/0.5 Mg (3 Ml) Ud) 3 ml [facility]H [id number] [facility] Last Admin: 01/06/17 02:56 Dose: Not Given Doxycycline Hyclate (Doryx) 100 mg PO Q12 HUANG PRN Reason: Protocol Last Admin: 01/05/17 22:28 Dose: 100 mg Cefepime HCl (Maxipime 1gm) 100 mls @ 100 mls/hr IVPB Q8 [facility]ANG PRN Reason: Protocol Stop: 01/12/17 14:01 Last Admin: 01/06/17 05:05 Dose: 100 mls/hr Methylprednisolone (Solu-Medrol) 40 mg IV Q8 [facility] Last Admin: 01/06/17 05:06 Dose: 40 mg - Labs Labs: 01/05/17 08:50 01/05/17 08:50 PT 13.9 Seconds (9.9-11.8) H 01/04/17 18:07 INR 1.29 (0.93-1.08) H 01/04/17 18:07 APTT 33.8 Seconds (23.7-30.8) H 01/04/17 18:07 - Constitutional Appears: Non-toxic, No Acute Distress - Head Exam Head Exam: NORMAL INSPECTION - ENT Exam ENT Exam: Mucous Membranes Moist - Neck Exam Neck Exam: absent: Lymphadenopathy, Meningismus - Respiratory Exam Respiratory Exam: Decreased Breath Sounds - Cardiovascular Exam Cardiovascular Exam: +S1, +S2 - GI/Abdominal Exam GI & Abdominal Exam: Soft. absent: Tenderness Assessment and Plan - Assessment and Plan (Free Text) Plan: Assessment Consider healthcare-associated pneumonia (atypical) in a patient with acute bronchitis, slowly improving Syncope, etiology to be determined S/P systemic viral illness with probable Influenza HTN GERD myelodysplastic syndrome Plan will d/c Cefepime and continue Doxycycline (Day 2); blood cx are negative, Procalcitonin is only 0.10; reviewed CXR Reviewed Dr. Landry's evaluation and recommendations Will follow clinically
--- NOTE | 2017-01-06 15:27 | PN ---
DATE: 01/06/2017 SUBJECTIVE: The patient is currently seen, sodium was acceptable at 133. MEDICATIONS: List reviewed. The patient is currently on Doryx, DuoNeb, Maxipime, and Solu-Medrol. OBJECTIVE: INTAKE AND OUTPUT: 800 / ??. VS per chart. Exam unchanged. LABORATORY DATA AND IMAGING: CBC: White blood cell count 7.8 with a hemoglobin of 9.6. Platelet count is 61,000. Chemistries show normal electrolytes. Sodium 133, potassium 3.9, chloride 103 with a CO2 of 22. BUN is 18 with a creatinine of 0.6. Glucose is normal. ASS and PLAN: Status post hyponatremia. Hyponatremia was likely multifactorial. The patient appears to be euvolemic. No gastrointestinal losses. No nausea, vomiting or diarrhea. No polyuria. The patient states that he drinks large amounts of water. He was also on blood pressure medication with a diuretic. Sodium has improved from 122 up to 133. This with normal saline and hypertonic saline. The patient is currently off diuretic therapy and with fluid restriction. Hypertension. Blood pressure is controlled without the need for a diuretic. No Hyzaar. Acute bronchitis with possible pneumonia. Patient was evaluated by pulmonary and is felt to possibly have a superimposed pneumonia on top of bronchitis. Cont IVAB therapy. Faraz Hathaway MD cc: [id number] TT: 01/06/2017 14:56:13 Confirmation # [id number] Dictation # [id number] en MTDD
[2017-01-07] MEDS: Cefepime 1gm in NS 100ml 100 ML IVPB SCH ×3 (06:06→22:22)
[2017-01-07 07:17] LABS: HEMATOCRIT 27.8 % (42.0-52.0); MEAN CELL VOLUME 92.1 fL (80.0-105.0); MEAN CORPUSCULAR HEMOGLOBIN 31.1 pg (25.0-35.0); MEAN CORPUSCULAR HGB CONC 33.8 g/dl (31.0-37.0); MEAN PLATELET VOLUME 11.1 fl (7.0-11.0); RED CELL DISTRIBUTION WIDTH 21.3 % (11.5-14.5); WHITE BLOOD COUNT 12.2 10^3/ul (4.5-11.0)
[2017-01-07 07:41] LABS: ALB/GLOB RATIO 0.6 (1.1-1.8); ALKALINE PHOSPHATASE 91 U/L (38-133); ALT/SGPT 21 U/L (7-56); AST/SGOT 38 U/L (15-59); BILIRUBIN,TOTAL 0.4 mg/dL (0.2-1.3); BLOOD UREA NITROGEN 22 mg/dL (7-21); CALCIUM 8.7 mg/dL (8.4-10.5); CARBON DIOXIDE 23 mmol/L (21-33); CHLORIDE 100 mmol/L (95-110); GFR AFRICAN-AMERICAN > 60; POTASSIUM 4.4 mmol/L (3.6-5.0); SODIUM 129 mmol/L (132-148); TOTAL PROTEIN 7.7 g/dL (5.8-8.3)
[2017-01-07 07:56] LABS: GLUCOSE,RANDOM 321 mg/dL (70-110)
--- NOTE | 2017-01-07 07:56 | PN ---
DATE: 01/07/2017 SUBJECTIVE: The patient appears very comfortable at rest. He is not short of breath. PHYSICAL EXAMINATION: VITAL SIGNS: Temperature is 97.4, pulse 78, respirations 18/20, blood pressure 142/71. Oxygen saturation on nasal cannula is 98%. HEENT: Normocephalic, atraumatic. No JVD. CARDIOVASCULAR: Positive S1, S2. No S3. LUNGS: Minimal/less rhonchi. Very minimal/less wheezing. EXTREMITIES: No clubbing, cyanosis, or edema. Calves are nontender to palpation. GASTROINTESTINAL: Abdomen is soft, nontender, nondistended. Bowel sounds are positive. SKIN: No acute rash. NEUROLOGIC: Limited at the present time. IMPRESSION: 1. Acute bronchitis. 2. Rule out pneumonia -- left lower lobe. 3. Syncope. 4. Myelodysplastic syndrome. 5. Anemia. 6. Thrombocytopenia. PLAN: The patient appears very comfortable this morning. He is not short of breath at rest. He states he is feeling much, much better overall. On physical exam, his bronchospasm continues to resolve. In addition, the oxygen saturation on nasal cannula is now 98%. I will continue with the current nebulizer treatments and decrease the intravenous steroids this morning. I would continue with the antibiotic coverage as per infectious disease. Input by Dr. Springer is noted. The temperatures have now fully resolved. There is no leukocytosis. Renal evaluation is also noted. Clinical status of the patient is significantly improved overall. I would advise increasing his activity as tolerated. I will discuss the above with the attending physician. Jim Landry MD cc: [phone] TT: 01/07/2017 07:55:41 Confirmation # [id number] Dictation # [id number] saroj CORMIER
[2017-01-07] MEDS: Albuterol-Ipratrop 3 mg / 0.5 (3 ml) UD IH SCH ×3 (07:57→20:45)
--- NOTE | 2017-01-07 08:55 | PN ---
DATE: 01/07/2017 The patient is in room 369, bed 2, [facility] in [place]. This is a 76-year-old male. He was admitted with fever, cough, shortness of breath. The patient has past history of hypertension, myelodysplastic syndrome. The patient is seen this morning. He says he has insomnia, but he is feeling better as far as his weakness is concerned. The patient also had hypernatremia on evaluation of his blood in the Emergency Room. His sodium was 122. The patient is seen this morning. He is relatively comfortable. PHYSICAL EXAMINATION: VITAL SIGNS: His pulse is 73, blood pressure is 138/85, respirations are 20, O2 sat is 98%. His temperature 97.3. HEAD: Normocephalic. NECK: Thyroid is not enlarged. Carotid pulses are present. No lymphadenopathy. LUNGS: Trachea is central. Breath sounds are vesicular. No adventitious sounds; rhonchi heard bilaterally. HEART: Normal sinus rhythm, sinus bradycardia. Normal sinus rate. ABDOMEN: Soft. Liver, spleen not palpable. CENTRAL NERVOUS SYSTEM: No focal neurological deficits are noted at this time. LABORATORY DATA: Shows hemoglobin 9.4, white count of 12,200, platelet count of 81,000 which is higher than what it was when he came in it was 56,000. The patient's chemistry: The blood sugar has shown elevation' currently it is up to 321. The patient's sodium is 129. Albumin level is 2.8, globulin is 4.9. PLAN: The patient has hyponatremia with infection. 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 Will continue current management. The fluid is restricted by the hand glove cleaner. The patient is seen by Dr. Hahn, the political science chair. Infectious disease and youtuber are also seeing the patient. We will continue current management and add medication to help him sleep at night. Mervin Solis MD cc: [phone] TT: 01/07/2017 08:55:14 Confirmation # [id number] Dictation # [id number] CASA
[2017-01-07] MEDS: MethylPREDNISolone 40 mg Vial IVP SCH ×2 (10:24→22:21)
--- NOTE | 2017-01-07 10:41 | CP.PCM.PN ---
Subjective - Date & Time of Evaluation Date of Evaluation: 01/07/17 Time of Evaluation: 10:39 - Subjective Subjective: seen and examined still sob Objective - Vital Signs/Intake and Output Vital Signs (last 24 hours): Temp Pulse Resp BP Pulse Ox 97.3 F L 73 20 138/85 98 01/07/17 08:00 01/07/17 08:00 01/07/17 08:00 01/07/17 08:00 01/07/17 08:00 Intake and Output: 01/07/17 01/07/17 06:59 18:59 Intake Total 840 Output Total 700 Balance 140 - Medications Medications: Current Medications Acetaminophen (Tylenol 325mg Tab) 650 mg PO Q6H PRN PRN Reason: Headache Albuterol/Ipratropium (Duoneb 3 Mg/0.5 Mg (3 Ml) Ud) 3 ml IH [id number] HUANG Last Admin: 01/07/17 07:57 Dose: 3 ml Doxycycline Hyclate (Doryx) 100 mg PO Q12 HUANG PRN Reason: Protocol Last Admin: 01/07/17 10:23 Dose: 100 mg Cefepime HCl (Maxipime 1gm) 100 mls @ 100 mls/hr IVPB Q8 HUANG PRN Reason: Protocol Stop: 01/12/17 14:01 Last Admin: 01/07/17 06:06 Dose: 100 mls/hr Methylprednisolone (Solu-Medrol) 30 mg IVP Q12 HUANG Last Admin: 01/07/17 10:24 Dose: 30 mg - Labs Labs: 01/07/17 06:40 01/07/17 06:40 PT 13.9 Seconds (9.9-11.8) H 01/04/17 18:07 INR 1.29 (0.93-1.08) H 01/04/17 18:07 APTT 33.8 Seconds (23.7-30.8) H 01/04/17 18:07 - Constitutional Appears: Non-toxic - Head Exam Head Exam: ATRAUMATIC - Eye Exam Eye Exam: Normal appearance - ENT Exam ENT Exam: Normal Exam - Neck Exam Neck Exam: Normal Inspection - Respiratory Exam Additional comments: coarse bs - Cardiovascular Exam Cardiovascular Exam: +S1, +S2 - GI/Abdominal Exam GI & Abdominal Exam: Normal Bowel Sounds - Extremities Exam Additional comments: no edema - Back Exam Back Exam: NORMAL INSPECTION - Neurological Exam Neurological Exam: Awake, Oriented x3 - Psychiatric Exam Psychiatric exam: Normal Affect, Normal Mood - Skin Skin Exam: Normal Color Assessment and Plan - Assessment and Plan (Free Text) Assessment: Hyponatremia/ Pneumonia/ MDS/ Anemia / plan: Hypona: slightly lower today - suspect element of SIADH from PNA however - given hyperglycemia likely a dilutional component and given hx of MDS would like to also r/o pseudohyponatremia. Will check his Serum os, urine osm, urine lytes. Asked RN to contact primary regarding insulin to see if Na improves w/ better glycemic control Abx per primary/id
[2017-01-07] MEDS: Insulin Reg-MEDIUM-Coverage SC SCH ×3 (12:30→22:19)
--- NOTE | 2017-01-07 13:24 | PN ---
DATE: 01/07/2017 The patient is in bed in no acute distress, nontoxic. On exam, temperature is 98, blood pressure is 130/80, respiratory rate of 16. EXAMINATION OF HENT: Unremarkable. NECK: Supple. LUNGS: Have decreased breath sounds. HEART EXAMINATION: Normal S1, S2. ABDOMINAL EXAMINATION: Soft, nontender. LABORATORY EXAMINATION: Reveals a white count of 12,000, and hemoglobin of 9, and BUN of 22, creatin ine of 0.6. Urinalysis is noted. Chest x-ray is noted. Blood cultures are negative. Review of the orders reveals the patient is on p.o. doxycycline, and Solu-Medrol, and cefepime. ASSESSMENT AND PLAN: A 76-year-old male seen earlier in room 369 with a healthcare-associated atypic al pneumonia, acute bronchitis, improving syncope, with hypertension and gastroesophageal reflux dise ase, and myelodysplastic syndrome, and day #3 of antibiotics on doxycycline, and cefepime, Solu-Medro l. Will follow closely with you. Marcial Hunter MD cc: [id number] TT: 01/07/2017 13:23:47 Confirmation # [id number] Dictation # [id number] jn
[2017-01-08] MEDS: Albuterol-Ipratrop 3 mg / 0.5 (3 ml) UD IH SCH ×5 (01:55→21:00)
[2017-01-08 06:39] LABS: HEMATOCRIT 28.1 % (42.0-52.0); MEAN CELL VOLUME 92.7 fL (80.0-105.0); MEAN CORPUSCULAR HEMOGLOBIN 31.7 pg (25.0-35.0); MEAN CORPUSCULAR HGB CONC 34.2 g/dl (31.0-37.0); MEAN PLATELET VOLUME 10.7 fl (7.0-11.0); RED CELL DISTRIBUTION WIDTH 20.8 % (11.5-14.5); WHITE BLOOD COUNT 10.4 10^3/ul (4.5-11.0)
[2017-01-08] MEDS: Cefepime 1gm in NS 100ml 100 ML IVPB SCH (06:43)
--- NOTE | 2017-01-08 06:49 | PN ---
DATE: 01/08/2017 SUBJECTIVE: The patient appears comfortable this morning. He is not short of breath at rest. PHYSICAL EXAMINATION: VITAL SIGNS: Temperature is 97.5, pulse 68, respirations 18/20, blood pressure 127/68. Oxygen saturation on nasal cannula is 99%. HEENT: Normocephalic, atraumatic. No JVD. CARDIOVASCULAR: Positive S1, S2. No S3. LUNGS: Minimal rhonchi. Minimal/less wheezing. EXTREMITIES: No clubbing, cyanosis, or edema. Calves are nontender to palpation. GASTROINTESTINAL: Abdomen is soft, nontender, nondistended. Bowel sounds are positive. SKIN: No acute rash. NEUROLOGIC: Limited at the present time. IMPRESSION: 1. Acute bronchitis. 2. Rule out pneumonia - left lower lobe. 3. Syncope. 4. Myelodysplastic syndrome. 5. Anemia. 6. Thrombocytopenia. PLAN: The patient appears very comfortable this morning. He is not short of breath at rest. He states he is feeling much, much better overall. On physical exam, his bronchospasm continues to slowly resolve. In addition, the aveolar arterial gradient also continues to resolve. Oxygen saturation on nasal cannula is now 99%. I will continue with the current nebulizer treatments and current intravenous steroids (decreased yesterday) for now. I would continue with the antibiotic coverage as per infectious disease. Temperatures have resolved. There is a very mild leukocytosis -- which may be partly due to the steroids. Repeat a.m. labs are pending. Input by Dr. Hunter is noted. Clinical status of the patient is significantly improved -- compared to the initial presentation. I will discuss the above with the attending physician. Jim Landry MD cc: [id number] TT: 01/08/2017 06:49:03 Confirmation # [id number] Dictation # [id number] CASA
[2017-01-08 06:56] LABS: ALB/GLOB RATIO 0.6 (1.1-1.8); ALKALINE PHOSPHATASE 81 U/L (38-133); ALT/SGPT 36 U/L (7-56); AST/SGOT 52 U/L (15-59); BILIRUBIN,TOTAL 0.6 mg/dL (0.2-1.3); BLOOD UREA NITROGEN 21 mg/dL (7-21); CALCIUM 8.5 mg/dL (8.4-10.5); CARBON DIOXIDE 24 mmol/L (21-33); CHLORIDE 98 mmol/L (98-107); GFR AFRICAN-AMERICAN > 60; GLUCOSE,RANDOM 250 mg/dL (70-110); POTASSIUM 4.4 mmol/L (3.6-5.0); SODIUM 130 mmol/L (132-148); TOTAL PROTEIN 7.7 g/dL (5.8-8.3)
[2017-01-08] MEDS: Insulin Reg-MEDIUM-Coverage SC SCH ×4 (07:59→22:02)
--- NOTE | 2017-01-08 10:49 | PN ---
DATE: 01/08/2017 The patient is in room 369, bed 2, [facility] in [place]. The patient is a 76-year-old [place]oc[place] male. The patient was admitted with fever, cough and history of syncope. The patient has past history of myelodysplastic syndrome, hypertension. He is seen this morning. He is comfortable. He says he is improving. PHYSICAL EXAMINATION: VITAL SIGNS: This morning, his pulse is 60, blood pressure 148/90, respirations are 21, O2 sat is 99% on room air. HEENT: Head is normocephalic. LUNGS: Trachea central, breath sounds vesicular. No adventitious sounds. HEART: Normal sinus rhythm. S1, S2 present. ABDOMEN: Soft. Liver, spleen not palpable. CENTRAL NERVOUS SYSTEM: No focal deficit noted. The patient has consultation with Dr. Hahn, his basketball referee, Dr. Jensen, oil well drilling manager for hyponatremia. The patient is continuing antibiotic at this time and also pulmonary consult is done with Dr. Landry. The patient is placed on steroids for acute bronchitis and the blood sugar has been elevated. Insulin coverage is being provided for the patient. We will continue current management. His condition is clinically stable, but we will continue the antibiotics and all the medications for the patient. Mervin Solis MD cc: [phone] TT: 01/08/2017 10:48:57 Confirmation # [id number] Dictation # [id number] en MTDD
--- NOTE | 2017-01-08 10:59 | PN ---
DATE: 01/08/2017 The patient is in bed, in no acute distress, nontoxic. PHYSICAL EXAMINATION: VITAL SIGNS: Temperature is 97, blood pressure is 140/90, respiratory rate of 16. HEENT: Unremarkable. NECK: Supple. LUNGS: Have decreased breath sounds. HEART: Normal S1, S2. ABDOMEN: Soft, nontender. LABORATORY EXAMINATION: Reveals a white count of 10, hemoglobin of 9, platelets of 82. Chemistries are noted, BUN of 21, creatinine of 0.7. Urinalysis is noted. Microbiology reveals the blood cultur es are no growth, urine cultures are no growth. Dr. Landry's note is reviewed from this morning. ASSESSMENT AND PLAN: A 76-year-old male seen earlier this morning in room 369, healthcare-associated typical pneumonia with acute bronchitis, improving, and syncope and hypertension, gastroesophageal r eflux disease, myelodysplastic syndrome. Day #4 of doxycycline and cefepime. The patient is also on Solu-Medrol with a procalcitonin of 0.1, negative blood and urine culture. We will discontinue the cefepime and complete a short course of doxycycline. Today is day #4 of 7 days of doxycycline. The patient is also on Solu-Medrol. Marcial Hunter MD cc: [id number] TT: 01/08/2017 10:58:19 Confirmation # [id number] Dictation # [id number] en
[2017-01-08] MEDS: MethylPREDNISolone 40 mg Vial IVP SCH ×2 (11:26→22:00)
--- NOTE | 2017-01-08 15:03 | CP.PCM.CON ---
History of Present Illness - History of Present Illness History of Present Illness: Mr. Joel is a 76 year old male recently diagnosed with MDS when he presented with anemia, thrombocytopenia. BMA and biopsy was diagnostic of MDS, intermediate grade. He developed cough for 2 weeks. He received a course of Z- janki from Dr. Leija with no relief in cough. Low grade fever. He felt dizzy standing in pharmacy and was hospitalized. CT head was negative for bleed. FLu serologies negative. He is feeling weak and fatigued. Dry cough. No chest pain. No skin petechie or bleeding. Hb 8 gm/dl. Review of Systems - Constitutional Constitutional: As Per HPI, Fatigue, Lethargy, Malaise - EENT Eyes: absent: As Per HPI, Blind Spots, Blurred Vision, Change in Vision, Decreased Night Vision, Diplopia, Discharge, Dry Eye, Exophthalmos, Floaters, Irritation, Itchy Eyes, Loss of Peripheral Vision, Pain, Photophobia, Requires Corrective Lenses, Sees Flashes, Spots in Vision, Tunnel Vision, Other Visual Disturbances, Loss of Vision, Other Ears: absent: As Per HPI, Decreased Hearing, Ear Discharge, Ear Pain, Tinnitus, Abnormal Hearing, Disequilibrium, Dizziness, Other Nose/Mouth/Throat: Nasal Congestion - Cardiovascular Cardiovascular: absent: As Per HPI, Acrocyanosis, Chest Pain, Chest Pain at Rest , Chest Pain with Activity, Claudication, Diaphoresis, Dyspnea, Dyspnea on Exertion, Edema, Irregular Heart Rhythm, Pain Radiating to Arm/Neck/Jaw, Leg Edema, Leg Ulcers, Lightheadedness, Orthopnea, Palpitations, Paroxysmal Nocturnal Dyspnea, Pedal Edema, Radiating Pain, Rapid Heart Rate, Slow Heart Rate, Syncope, Other - Respiratory Respiratory: Cough, Dyspnea, Chest Congestion - Gastrointestinal Gastrointestinal: absent: As Per HPI, Abdominal Pain, Belching, Bloating, Change in Bowel Habits, Change in Stool Character, Coffee Ground Emesis, Constipation, Cramping, Diarrhea, Dyspepsia, Dysphagia, Early Satiety, Excessive Flatus, Fecal Incontinence, Heartburn, Hematemesis, Hematochezia, Loose Stools, Melena, Nausea, Odynophagia, Temesmus, Vomiting, Other - Genitourinary Genitourinary: absent: As Per HPI, Change in Urinary Stream, Difficulty Urinating, Dysuria, Flank Pain, Hematuria, Pyuria, Nocturia, Urinary Incontinence, Urinary Frequency, Urinary Hesitance, Urinary Urgency, Voiding Freq/Small Amts, Freq UTI, Hx Renal/Bladder Calculi, Hx /Renal Surgery, Bladder Distension, Other - Musculoskeletal Musculoskeletal: absent: As Per HPI, Abnormal Gait, Arthralgias, Atrophy, Back Pain, Deformity, Joint Swelling, Limited Range of Motion, Loss of Height, Muscle Cramps, Muscle Weakness, Myalgias, Neck Pain, Numbness, Radiating Pain into Limb, Stiffness, Tingling, Other - Integumentary Integumentary: absent: As Per HPI, Acne, Alopecia, Bleeding Lesions, Change in Hair, Change in Nails, Change in Pigmentation, Changing Lesions, Dry Skin, Erythema, Furuncle, Hirsutism, Lesions, New Lesions, Non-Healing Lesions, Photosensitivity, Pruritus, Rash, Skin Pain, Skin Ulcer, Sores, Striae, Swelling , Unusual Bruising, Wounds, Jaundice, Other - Psychiatric Psychiatric: absent: As Per HPI, Abnormal Sleep Pattern, Anhedonia, Anxiety, Auditory Hallucinations, Behavioral Changes, Change in Appetite, Change in Libido, Confusion, Depression, Difficulty Concentrating, Hallucinations, Homicidal Ideation, Hopelessness, Irritability, Memory Loss, Mood Swings, Panic Attacks, Paranoia, Suicidal Ideation, Visual Hallucinations, Tactile Hallucinations, Other - Endocrine Endocrine: absent: As Per HPI, Change in Body Appearance, Change in Libido, Cold Intolorance, Deepening of Voice, Excessive Sweating, Fatigue, Flushing, Heat Intolorance, Increase in Ring/Shoe/Hat Size, Palpitations, Polydipsia, Polyphagia, Polyuria, Other - Hematologic/Lymphatic Hematologic: As Per HPI Past Patient History - Infectious Disease Hx of Infectious Diseases: None - Tetanus Immunizations Tetanus Immunization: Unknown - Past Medical History & Family History Past Medical History?: Yes Past Family History: Reviewed and not pertinent - Past Social History Smoking Status: Never Smoked Alcohol: Occasional Drugs: Denies Home Situation {Lives}: With Family - CARDIAC Hx Hypertension: Yes - PULMONARY Hx Respiratory Disorders: No - NEUROLOGICAL Hx Neurological Disorder: No - HEENT Hx HEENT Problems: No - RENAL Hx Chronic Kidney Disease: No - ENDOCRINE/METABOLIC Hx Endocrine Disorders: No - HEMATOLOGICAL/ONCOLOGICAL Hx Blood Transfusions: Yes Hx Blood Transfusion Reaction: Yes (PLATELETS) - INTEGUMENTARY Hx Dermatological Problems: No - MUSCULOSKELETAL/RHEUMATOLOGICAL Hx Falls: Yes - GASTROINTESTINAL Hx Gastrointestinal Disorders: No - GENITOURINARY/GYNECOLOGICAL Hx Genitourinary Disorders: Yes Other/Comment: KIDNEY STONE - PSYCHIATRIC Hx Psychophysiologic Disorder: No Hx Depression: No Hx Emotional Abuse: No Hx Physical Abuse: No Hx Substance Use: No - SURGICAL HISTORY Other/Comment: kidney stones - ANESTHESIA Hx Anesthesia: No Hx Anesthesia Reactions: No Hx Malignant Hyperthermia: No Meds Allergies/Adverse Reactions: Allergies Allergy/AdvReac Type Severity Reaction Status Date / Time CONTRAST Allergy SWELLING Uncoded 12/20/16 16:35 - Medications Medications: Current Medications Acetaminophen (Tylenol 325mg Tab) 650 mg PO Q6H PRN PRN Reason: Headache Last Admin: 01/07/17 19:18 Dose: 650 mg Albuterol/Ipratropium (Duoneb 3 Mg/0.5 Mg (3 Ml) Ud) 3 ml IH [id number] HUANG Last Admin: 01/08/17 13:46 Dose: 3 ml Doxycycline Hyclate (Doryx) 100 mg PO Q12 HUANG PRN Reason: Protocol Last Admin: 01/08/17 09:11 Dose: 100 mg Insulin Human Regular (Humulin R Med) 0 units SC ACHS HUANG PRN Reason: Protocol Last Admin: 01/08/17 12:58 Dose: 5 units Methylprednisolone (Solu-Medrol) 30 mg IVP Q12 [facility] Last Admin: 01/08/17 11:26 Dose: 30 mg Physical Exam - Constitutional Appears: Non-toxic - Head Exam Head Exam: ATRAUMATIC, NORMAL INSPECTION, NORMOCEPHALIC - Eye Exam Eye Exam: Normal appearance Pupil Exam: NORMAL ACCOMODATION - ENT Exam ENT Exam: Mucous Membranes Moist - Neck Exam Neck exam: Positive for: Normal Inspection. Negative for: Full Rom, Lymphadenopathy, Meningismus, Tenderness, Thyromegaly - Respiratory Exam Respiratory Exam: Clear to Auscultation Bilateral, NORMAL BREATHING PATTERN - Cardiovascular Exam Cardiovascular Exam: REGULAR RHYTHM, +S1, +S2 - GI/Abdominal Exam GI & Abdominal Exam: Normal Bowel Sounds, Soft - Extremities Exam Extremities exam: Positive for: normal inspection, pedal pulses present. Negative for: calf tenderness, full ROM, joint swelling, normal capillary refill , pedal edema, tenderness - Back Exam Back exam: NORMAL INSPECTION - Neurological Exam Neurological exam: Alert, Altered, CN II-XII Intact, Normal Gait, Oriented x3, Reflexes Normal - Psychiatric Exam Psychiatric exam: Normal Affect, Normal Mood - Skin Skin Exam: Intact, Normal Color, Warm Results - Vital Signs Recent Vital Signs: Last Vital Signs Temp 97.3 F L 01/08/17 07:39 Pulse 61 01/08/17 07:39 Resp 21 01/08/17 07:39 BP 148/90 01/08/17 07:39 Pulse Ox 99 01/08/17 07:39 - Labs Result Diagrams: 01/08/17 06:00 01/08/17 06:00 Labs: Laboratory Results - last 24 hr 01/05/17 01/07/17 01/07/17 20:16 12:27 17:31 WBC RBC Hgb Hct MCV MCH MCHC RDW Plt Count MPV Sodium Potassium Chloride Carbon Dioxide Anion Gap BUN Creatinine Est GFR ( Amer) Est GFR (Non-Af Amer) POC Glucose (mg/dL) 307 H 356 H 385 H Random Glucose Calcium Total Bilirubin AST ALT Alkaline Phosphatase Total Protein Albumin Globulin Albumin/Globulin Ratio Urine Osmolality Ur Random Creatinine Ur Random Sodium Ur Random Potassium 01/07/17 01/08/17 01/08/17 21:56 06:00 07:08 WBC 10.4 RBC 3.03 L Hgb 9.6 L Hct 28.1 L MCV 92.7 MCH 31.7 MCHC 34.2 RDW 20.8 H Plt Count 82 L MPV 10.7 Sodium 130 L Potassium 4.4 Chloride 98 Carbon Dioxide 24 Anion Gap 12 BUN 21 Creatinine 0.7 Est GFR ( Amer) > 60 Est GFR (Non-Af Amer) > 60 POC Glucose (mg/dL) 348 H 262 H Random Glucose 250 H Calcium 8.5 Total Bilirubin 0.6 AST 52 ALT 36 Alkaline Phosphatase 81 Total Protein 7.7 Albumin 3.0 Globulin 4.7 Albumin/Globulin Ratio 0.6 L Urine Osmolality Ur Random Creatinine Ur Random Sodium Ur Random Potassium 01/08/17 01/08/17 09:30 13:30 WBC RBC Hgb Hct MCV MCH MCHC RDW Plt Count MPV Sodium Potassium Chloride Carbon Dioxide Anion Gap BUN Creatinine Est GFR ( Amer) Est GFR (Non-Af Amer) POC Glucose (mg/dL) Random Glucose Calcium Total Bilirubin AST ALT Alkaline Phosphatase Total Protein Albumin Globulin Albumin/Globulin Ratio Urine Osmolality 828 H Ur Random Creatinine 59 Ur Random Sodium 167 Ur Random Potassium 39.7 Assessment & Plan - Assessment and Plan (Free Text) Assessment: 1. Syncope 2. Acute Bronchitis 3. Anemia 4. Thrombocytopenia 5. MDS, intermediate grade 6. Hypertension 7. Acute sinusitis Plan: 1. Syncope, CT head negative for bleed. Discussed with ER physician. syncope likely due to fever, malaise. 2. Hb /hct low at 8 gm/dl. He received 200 mcgm Aranesp SQ 2 days ago. 1 unit of PRBC ordered. 3. Thrombocytopenia , due to MDS. Platelet count stable more than 50k. No indication for platelet transfusion now. Will monitor platelet count. 4. ID : acute sinusitis, patchy infiltrate in lung. WC is normal. Cefrtixone 1gm IV stat ordered. ID Dr. Yao consulted. 5. CV : hemodynamically stable. 6. Renal : BUN, creatinine normal. Discussed with the patient. discussed with the , ED physician, staff Nurse. Thank you Dr. Leija for allowing us to participate in his care. - Date & Time Date: 01/05/17 Time: 10:00
--- NOTE | 2017-01-08 15:15 | CP.PCM.PN ---
Subjective - Date & Time of Evaluation Date of Evaluation: 01/06/17 Time of Evaluation: 09:00 - Subjective Subjective: Feeling weak, fatigued. Cough improved. No chest pain. CXR showed patchy infiltrate. On IV antibiotics. Hb improved to 9.6 gm/dl, status post 1 unit of PRBC. Platelet count stable at 56k. No bleeding. Diziness resolved. CT head no bleed. apatite improved. No fever. Objective - Vital Signs/Intake and Output Vital Signs (last 24 hours): Temp Pulse Resp BP Pulse Ox 97.3 F L 61 21 148/90 99 01/08/17 07:39 01/08/17 07:39 01/08/17 07:39 01/08/17 07:39 01/08/17 07:39 Intake and Output: 01/08/17 01/08/17 06:59 18:59 Intake Total 360 480 Output Total 200 Balance 160 480 - Medications Medications: Current Medications Acetaminophen (Tylenol 325mg Tab) 650 mg PO Q6H PRN PRN Reason: Headache Last Admin: 01/07/17 19:18 Dose: 650 mg Albuterol/Ipratropium (Duoneb 3 Mg/0.5 Mg (3 Ml) Ud) 3 ml IH [id number] [facility] Last Admin: 01/08/17 13:46 Dose: 3 ml Doxycycline Hyclate (Doryx) 100 mg PO Q12 HUANG PRN Reason: Protocol Last Admin: 01/08/17 09:11 Dose: 100 mg Insulin Human Regular (Humulin R Med) 0 units SC ACHS HUANG PRN Reason: Protocol Last Admin: 01/08/17 12:58 Dose: 5 units Methylprednisolone (Solu-Medrol) 30 mg IVP Q12 [facility] Last Admin: 01/08/17 11:26 Dose: 30 mg - Labs Labs: 01/08/17 06:00 01/08/17 06:00 PT 13.9 Seconds (9.9-11.8) H 01/04/17 18:07 INR 1.29 (0.93-1.08) H 01/04/17 18:07 APTT 33.8 Seconds (23.7-30.8) H 01/04/17 18:07 - Constitutional Appears: Non-toxic - Head Exam Head Exam: ATRAUMATIC, NORMAL INSPECTION, NORMOCEPHALIC - Eye Exam Eye Exam: Conjunctival injection, Normal appearance - ENT Exam ENT Exam: Mucous Membranes Moist, Normal Oropharynx - Neck Exam Neck Exam: Full ROM, Normal Inspection - Respiratory Exam Respiratory Exam: Clear to Ausculation Bilateral, NORMAL BREATHING PATTERN - Cardiovascular Exam Cardiovascular Exam: REGULAR RHYTHM, +S1, +S2 - GI/Abdominal Exam GI & Abdominal Exam: Soft, Normal Bowel Sounds - Back Exam Back Exam: NORMAL INSPECTION - Neurological Exam Neurological Exam: Alert, Awake, CN II-XII Intact, Oriented x3 - Psychiatric Exam Psychiatric exam: Normal Affect, Normal Mood - Skin Skin Exam: Dry, Intact, Normal Color, Pallor, Warm. absent: Cyanosis, Diaphoretic, Erythema, Petechiae, Rash Assessment and Plan - Assessment and Plan (Free Text) Assessment: 1. MDS- anemia, thrombocytopenia : s/p one unit of PRBC. Hb stable. Platelet count improved to 61 k. No bleed. skin no petechie. S/P 200 mcgm Aranesp this week. Will continue to monitor blood counts. 2. Syncope : resolved. CT head negative. 3. CV : stable, 4. ID : sinusitis, patchy b/l lung infiltrate. on cefepime, doxy , ID following. 5. Pulmonary : cough improved. No bronchospasm. 6. Holly; BUN, creatinine normal. Lytes normal. Thank you Dr. Leija for allowing us to participate in his care.
--- NOTE | 2017-01-08 19:06 | CP.PCM.PN ---
Subjective - Date & Time of Evaluation Date of Evaluation: 01/08/17 Time of Evaluation: 19:03 - Subjective Subjective: seen and examined feels ok Objective - Vital Signs/Intake and Output Vital Signs (last 24 hours): Temp Pulse Resp BP Pulse Ox 98.1 F 71 22 139/81 99 01/08/17 17:04 01/08/17 17:04 01/08/17 17:04 01/08/17 17:04 01/08/17 17:04 Intake and Output: 01/08/17 01/09/17 18:59 06:59 Intake Total 480 Balance 480 - Medications Medications: Current Medications Acetaminophen (Tylenol 325mg Tab) 650 mg PO Q6H PRN PRN Reason: Headache Last Admin: 01/07/17 19:18 Dose: 650 mg Albuterol/Ipratropium (Duoneb 3 Mg/0.5 Mg (3 Ml) Ud) 3 ml IH [id number] HUANG Last Admin: 01/08/17 13:46 Dose: 3 ml Doxycycline Hyclate (Doryx) 100 mg PO Q12 HUANG PRN Reason: Protocol Last Admin: 01/08/17 09:11 Dose: 100 mg Insulin Human Regular (Humulin R Med) 0 units SC ACHS HUANG PRN Reason: Protocol Last Admin: 01/08/17 18:09 Dose: 7 units Methylprednisolone (Solu-Medrol) 30 mg IVP Q12 [facility] Last Admin: 01/08/17 11:26 Dose: 30 mg - Labs Labs: 01/08/17 06:00 01/08/17 06:00 PT 13.9 Seconds (9.9-11.8) H 01/04/17 18:07 INR 1.29 (0.93-1.08) H 01/04/17 18:07 APTT 33.8 Seconds (23.7-30.8) H 01/04/17 18:07 - Constitutional Appears: Non-toxic - Head Exam Head Exam: ATRAUMATIC - Eye Exam Eye Exam: Normal appearance - ENT Exam ENT Exam: Mucous Membranes Moist - Neck Exam Neck Exam: Normal Inspection - Respiratory Exam Additional comments: coarse bs b/l - Cardiovascular Exam Cardiovascular Exam: +S1, +S2 - GI/Abdominal Exam GI & Abdominal Exam: Normal Bowel Sounds - Extremities Exam Additional comments: no edema - Neurological Exam Neurological Exam: Alert, Oriented x3 - Psychiatric Exam Psychiatric exam: Normal Affect - Skin Skin Exam: Normal Color Assessment and Plan - Assessment and Plan (Free Text) Assessment: Hyponatremia/ Pnemonia/ /dm / mds plan: Urine lytes seem most consistent w/ siadh likely from intrapulmonary process but also likely a component of dilutional component for the sugars which have been consistently high. Was started on insulin which I will defer to primary. Continue abx per ID/Pulm.
[2017-01-09] MEDS: Albuterol-Ipratrop 3 mg / 0.5 (3 ml) UD IH SCH ×3 (07:58→20:04)
[2017-01-09] MEDS: Insulin Reg-MEDIUM-Coverage SC SCH ×4 (08:16→21:29)
--- NOTE | 2017-01-09 08:27 | PN ---
DATE: 01/09/2017 SUBJECTIVE: The patient appears very comfortable at rest. He is not short of breath. PHYSICAL EXAMINATION: VITAL SIGNS: Temperature is 98.1, pulse is 71, respirations 18, blood pressure 139/81. Oxygen saturation on nasal cannula is 99%. HEENT: Normocephalic, atraumatic. No JVD. CARDIOVASCULAR: Positive S1, S2. No S3. LUNGS: Very minimal/less rhonchi. No wheezing. EXTREMITIES: No clubbing, cyanosis, or edema. Calves are nontender to palpation. GASTROINTESTINAL: Abdomen is soft, nontender, nondistended. Bowel sounds are positive. SKIN: No acute rash. NEUROLOGIC: Limited at the present time. IMPRESSION: 1. Acute bronchitis. 2. Rule out pneumonia -- left lower lobe. 3. Syncope. 4. Myelodysplastic syndrome. 5. Anemia. 6. Thrombocytopenia. PLAN: The patient appears very comfortable this morning. He is not short of breath at rest. He states he is feeling much, much better overall. On physical exam, his bronchospasm continues to resolve. In addition, the alveolar -arterial gradient also continues to resolve. Oxygen saturation on nasal cannula is now 99%. I will continue with the current nebulizer treatments and change to oral steroids this morning. The patient remains on antibiotic therapy -- as per infectious disease. Temperatures have fully resolved. The leukocytosis has also fully resolved. Renal evaluation is also ongoing. Inputs are noted. Clinical status of the patient is significantly improved. He is advised to increase his activity as tolerated. I will discuss the above with the attending physician. Jim Landry MD cc: [id number] TT: 01/09/2017 08:26:37 Confirmation # [id number] Dictation # [id number] en MTDD
--- NOTE | 2017-01-09 09:47 | PN ---
DATE: 01/09/2017 The patient is a 76-year-old male. The patient is in room 369, bed 2. He was admitted with fever, hyponatremia, anemia (myelodysplastic syndrome), syncope. The patient has a history of pneumonia in the past, hypertension. ALLERGIES: THE PATIENT HAS ALLERGY TO CONTRAST DYE. He is seen this morning. He is clinically improving. He was on IV antibiotics. He is currently on p.o. doxycycline. The patient's steroids were discontinued from IV steroid to oral steroid. Now, he is on 40 mg of prednisone daily. PHYSICAL EXAMINATION: VITAL SIGNS: The blood pressure is 139-140/80. The patient's pulse is 71, respirations are 22. The patient is on 2 liters of oxygen. HEAD: Normocephalic. LUNGS: Clear. HEART: Normal sinus rhythm. ABDOMEN: Soft. Liver, spleen not palpable. CENTRAL NERVOUS SYSTEM: No focal deficits. MEDICATIONS: Consist of prednisone 40 mg daily, insulin coverage for hyperglycemia induced by steroid. The patient is on DuoNeb, doxycycline. The patient's last hemoglobin was 9.6, his white count is 10,400. We will continue current management and followup. Mervin Solis MD cc: [phone] TT: 01/09/2017 09:46:31 Confirmation # [id number] Dictation # [id number] en MTDD
--- NOTE | 2017-01-09 14:32 | CP.PCM.PN ---
Subjective - Date & Time of Evaluation Date of Evaluation: 01/09/17 Time of Evaluation: 10:10 - Subjective Subjective: Comfortable, afebrile overnight, no acute events overnight, feeling better. Objective - Vital Signs/Intake and Output Vital Signs (last 24 hours): Temp Pulse Resp BP Pulse Ox 98.2 F 66 20 155/87 H 100 01/09/17 06:00 01/09/17 06:00 01/09/17 06:00 01/09/17 06:00 01/09/17 06:00 Intake and Output: 01/09/17 01/09/17 06:59 18:59 Intake Total 720 240 Output Total 450 Balance 720 -210 - Medications Medications: Current Medications Acetaminophen (Tylenol 325mg Tab) 650 mg PO Q6H PRN PRN Reason: Headache Last Admin: 01/07/17 19:18 Dose: 650 mg Albuterol/Ipratropium (Duoneb 3 Mg/0.5 Mg (3 Ml) Ud) 3 ml IH [id number] HUANG Last Admin: 01/09/17 07:58 Dose: 3 ml Doxycycline Hyclate (Doryx) 100 mg PO Q12 HUANG PRN Reason: Protocol Last Admin: 01/08/17 22:00 Dose: 100 mg Insulin Human Regular (Humulin R Med) 0 units SC ACHS HUANG PRN Reason: Protocol Last Admin: 01/09/17 08:16 Dose: 3 units Prednisone (Prednisone Tab) 40 mg PO DAILY HUANG - Labs Labs: 01/08/17 06:00 01/08/17 06:00 PT 13.9 Seconds (9.9-11.8) H 01/04/17 18:07 INR 1.29 (0.93-1.08) H 01/04/17 18:07 APTT 33.8 Seconds (23.7-30.8) H 01/04/17 18:07 - Constitutional Appears: Non-toxic, No Acute Distress - Head Exam Head Exam: NORMAL INSPECTION - Respiratory Exam Respiratory Exam: Decreased Breath Sounds - Cardiovascular Exam Cardiovascular Exam: +S1, +S2 - GI/Abdominal Exam GI & Abdominal Exam: Soft. absent: Tenderness Assessment and Plan - Assessment and Plan (Free Text) Plan: Assessment Consider healthcare-associated pneumonia (atypical) in a patient with acute bronchitis, clinically improving Syncope, etiology to be determined S/P systemic viral illness with probable Influenza HTN GERD myelodysplastic syndrome Plan continue Doxycycline (Day 5) to complete a 5-7 day course; blood cx are negative , Procalcitonin is only 0.10; reviewed CXR Reviewed Dr. Landry's evaluation and recommendations Will continue to follow clinically
--- NOTE | 2017-01-09 15:22 | PN ---
DATE: 01/09/2017 SUBJECTIVE: The patient is seen sitting in chair. He is awake. He is alert. He is comfortable. H e denies any chest pain. Denies any shortness of breath. Denies any cough. PHYSICAL EXAMINATION: GENERAL: Elderly male sitting in chair. VITAL SIGNS: Blood pressure 155/87, heart rate 66, respiratory rate 20, temperature 98.2. HEENT: Normocephalic, atraumatic. NECK: Supple, no JVD. LUNGS: Bilateral equal air entry, no rales. CARDIAC: S1, S2, regular rate and rhythm, no murmur, no rub. ABDOMEN: Soft, nondistended, nontender, bowel sounds present. EXTREMITIES: No lower extremity edema. INTAKE AND OUTPUT: 240/450. LABORATORY DATA: WBC 10, hemoglobin 9.6, hematocrit 28, platelets 82. Sodium 130, potassium 4.4, ch loride 98, CO2 of 24, BUN 21, creatinine 0.7, glucose 250, calcium 8.5, albumin 3.0. Urine sodium 16 7, urine creatinine 59. CURRENT MEDICATIONS: Doxycycline, insulin, prednisone, Tylenol, Solu-Medrol. ASSESSMENT AND PLAN: 1. Hyponatremia, suspect syndrome of inappropriate antidiuretic hormone secondary to hydrochlorothia zide. 2. Hypertension, well controlled at this time off Hyzaar. Will discontinue hydrochlorothiazide and start Cozaar. 3. Acute bronchitis. 4. Chronic obstructive pulmonary disease. PLAN: 1. Start Cozaar 50 mg daily. 2. Keep off hydrochlorothiazide. 3. Taper steroids as feasible. 4. Monitor sodium. Cami Jensen MD cc: [id number] TT: 01/09/2017 15:21:46 Confirmation # [id number] Dictation # [id number] mn
[2017-01-09 18:03] VITALS: PULSE 81
[2017-01-10] MEDS: Albuterol-Ipratrop 3 mg / 0.5 (3 ml) UD IH SCH ×3 (01:16→13:31)
[2017-01-10] MEDS: Insulin Reg-MEDIUM-Coverage SC SCH (08:00)
--- NOTE | 2017-01-10 08:09 | PN ---
DATE: 01/09/2017 SUBJECTIVE: He is sitting comfortably in chair, feels fatigued. has bilateral infiltrate on chest x-ray. He is currently on IV antibiotics with cefepime and doxycycline. No cough. Conjunctivitis on the right eye, resolved. No abdominal pain. No nausea. No vomiting. Blood counts have improved. Platelet count improved to 80,000, likely due to use of IV steroids. Hemoglobin and hematocrit stable. White count is normal. His appetite has improved. Ambulating in the room. REVIEW OF SYSTEMS: As per HPI. The rest of 12-point review of systems reviewed and negative. PHYSICAL EXAMINATION: VITAL SIGNS: Afebrile. Temperature is 97.8, heart rate is 80 per minute, blood pressure 139/83, respiratory rate 20 per minute, oxygen saturation 98% on oxygen by nasal cannula. HEENT: Normal. NECK: No lymphadenopathy. CHEST: Air entry present, equal bilateral. No added sound. CARDIOVASCULAR: S1, S2 normal. No murmur. No gallop. ABDOMEN: Soft, nontender. No hepatosplenomegaly. EXTREMITIES: No edema. SPINE: No tenderness. SKIN: No petechia. No rash. CENTRAL NERVOUS SYSTEM: Alert, oriented x 3. No focal sensory motor deficit. LABORATORY DATA: White count 10.4, hemoglobin 9.6, hematocrit 21.1, platelet count 82,000. Sodium 130, potassium 4.4, BUN 21, creatinine 0.7, glucose 250. MEDICATIONS: Tylenol 650 q. 6 hours p.r.n., DuoNeb 3 mL q. 6 hours p.r.n., doxycycline 100 mg p.o. q. 12 hours, insulin as per sliding, prednisone 40 mg daily. ASSESSMENT: 1. Myelodysplastic syndrome, intermediate grade. 2. Anemia. 3. Thrombocytopenia. 4. Bilateral pneumonia. 5. Hypertension. 6. Hyperglycemia. 7. Hyponatremia. 8. Syncope. PLAN: 1. He received 1 unit of blood transfusion since admission. Hemoglobin is stable at 9.6 g/dL. We will continue to follow. He received Aranesp last week , 200 mcg. The dose is 200 mcg every 2 weeks. He is not due for Aranesp this week. Platelet count improved to 82,000, likely due to steroid use. We will continue to monitor blood counts. 2. Hyponatremia, improved. Sodium improved to 130. 3. He has bilateral pneumonia, currently on IV antibiotic. Cough improved He also had acute sinusitis and conjunctivitis. 4. Hypertension controlled on current medications. 5. He is hyperglycemic likely due to steroid use. reviewed ID, Dr. Smith. Reviewed nephrology, Dr. Jensen, and pulmonary, Dr. Landry's note. Thank you, Dr. Leija, for allowing us to participate in the patient's care. Staci Hahn MD cc: [id number] TT: 01/10/2017 02:20:18 Confirmation # [id number] Dictation # [id number] saroj MTDD
[2017-01-10 09:45] VITALS: BP 143/89; RESP 19; TEMP 98; O2SAT 100
--- NOTE | 2017-01-10 10:07 | PN ---
DATE: 01/10/2017 PULMONARY NOTE SUBJECTIVE: The patient appears very comfortable this morning. He is not short of breath at rest. OBJECTIVE: VITAL SIGNS: Temperature is 97.8, pulse 81, respirations 18, blood pressure 139 /83. Oxygen saturation on nasal cannula is 98-100%. HEENT: Normocephalic, atraumatic. No JVD. CARDIOVASCULAR: Positive S1, S2. No S3. LUNGS: Clear bilaterally. EXTREMITIES: No clubbing, cyanosis, or edema. Calves are nontender to palpation. GASTROINTESTINAL: Abdomen is soft, nontender, nondistended. Bowel sounds are positive. SKIN: No acute rash. NEUROLOGIC: Limited at the present time. IMPRESSION: 1. Acute bronchitis. 2. Rule out pneumonia - left lower lobe. 3. Syncope. 4. Myelodysplastic syndrome. 5. Anemia. 6. Thrombocytopenia. PLAN: The patient appears very comfortable this morning. He is not short of breath at rest. He states he is feeling much, much better overall. On physical exam, his lungs are now clear. Oxygen saturation on nasal cannula is 98-100%. I will continue with the current nebulizer treatments and oral steroids (changed yesterday) for now. The patient remains on antibiotic therapy. Input by infectious disease (Dr. Springer) is noted. Temperatures have fully resolved. The leukocytosis has also fully resolved. Clinical status of the patient is significantly improved overall. He is advised to increase his activity as tolerated. I will discuss the above with the attending physician. Jim Landry MD cc: [phone] TT: 01/10/2017 10:06:27 Confirmation # [id number] Dictation # [id number] jn CASA
--- NOTE | 2017-01-10 10:45 | CP.PCM.PN ---
Subjective - Date & Time of Evaluation Date of Evaluation: 01/10/17 Time of Evaluation: 07:45 - Subjective Subjective: Patient was seen this morning in room 369 bed 2. He is feeling much better. Objective - Vital Signs/Intake and Output Vital Signs (last 24 hours): Temp Pulse Resp BP Pulse Ox 98.0 F 81 19 143/89 100 01/10/17 06:00 01/10/17 06:00 01/10/17 06:00 01/10/17 06:00 01/10/17 06:00 Intake and Output: 01/10/17 01/10/17 06:59 18:59 Intake Total 780 Output Total 0 Balance 780 - Medications Medications: Current Medications Acetaminophen (Tylenol 325mg Tab) 650 mg PO Q6H PRN PRN Reason: Headache Last Admin: 01/07/17 19:18 Dose: 650 mg Albuterol/Ipratropium (Duoneb 3 Mg/0.5 Mg (3 Ml) Ud) 3 ml IH [id number] [facility] Last Admin: 01/10/17 07:38 Dose: 3 ml Doxycycline Hyclate (Doryx) 100 mg PO Q12 HUANG PRN Reason: Protocol Last Admin: 01/10/17 10:03 Dose: 100 mg Insulin Human Regular (Humulin R Med) 0 units SC ACHS HUANG PRN Reason: Protocol Last Admin: 01/10/17 08:00 Dose: Not Given Prednisone (Prednisone Tab) 40 mg PO DAILY [facility] Last Admin: 01/10/17 10:03 Dose: 40 mg - Labs Labs: 01/08/17 06:00 01/08/17 06:00 PT 13.9 Seconds (9.9-11.8) H 01/04/17 18:07 INR 1.29 (0.93-1.08) H 01/04/17 18:07 APTT 33.8 Seconds (23.7-30.8) H 01/04/17 18:07 - Constitutional Appears: No Acute Distress - Head Exam Head Exam: ATRAUMATIC, NORMOCEPHALIC - Respiratory Exam Respiratory Exam: Clear to Ausculation Bilateral, NORMAL BREATHING PATTERN - Cardiovascular Exam Cardiovascular Exam: +S1, +S2 - GI/Abdominal Exam GI & Abdominal Exam: Soft, Normal Bowel Sounds. absent: Tenderness - Neurological Exam Neurological Exam: Alert, Awake, Oriented x3 Assessment and Plan - Assessment and Plan (Free Text) Assessment: Acute Bronchitis HTN Myelodysplastic syndrome Hyponatremia Plan: Patient is seen this morning and improved. He is now on oral prednisone and oral doxycycline. Due to the hyponatremia, we will discontinue the Losartan and start Norvasc. Patient will be discharged today. Discharge meds: Norvasc 5 mg PO Daily Doxycycline 100 mg BID for 5 more days Prednisone 10 mg BID for 7 days, then 10 mg once a day for 7 days, then 1/2 tab for 7 days. Patient will followup in the office in 1 week.
--- NOTE | 2017-01-10 12:44 | PN ---
DATE: 01/10/2017 SUBJECTIVE: The patient is currently sitting up in a chair. He states he will likely be discharged home later today. The patient's blood pressure medications were readjusted by Dr. Solis. He w ill likely be discharged home on Norvasc. He will not be taking either losartan or Hyzaar. MEDICATIONS: Medication list reviewed. The patient is currently on doxycycline, DuoNeb, sliding sca le insulin, prednisone, Tylenol and Norvasc 5 mg a day. Losartan had been discontinued. OBJECTIVE: INTAKE AND OUTPUT: 1500 in, 450 out. VITAL SIGNS: Blood pressure is 143/89, temperature is 98, respiratory rate is 19 with a pulse of 81. HEENT: Shows him to be normocephalic, atraumatic. Conjunctivae are pale. Sclerae are nonicteric. NECK: Supple, no neck vein distention. CHEST: Clear to auscultation and percussion. No rales, no rhonchi, no wheezing. CARDIOVASCULAR: Regular rate and rhythm without murmurs, rubs, or gallops. ABDOMEN: Soft. Bowel sounds normal. No rebound, no guarding, no masses. EXTREMITIES: Show no cyanosis, no clubbing or edema. LABORATORY DATA AND IMAGING: Last set of labs go back to 01/08, white blood cell count 10.4, hemoglob in 9.6 with a platelet count of 82,000. Chemistries: Last sodium was 130 from 2 days ago. Electrol ytes otherwise are normal. BUN 21 with a creatinine of 0.7, glucose was 250, uric acid was 4.1. The patient did have urine studies when he became hyponatremic once again. Urine osmolality was elevate d at 828 with a urine sodium of 167. ASSESSMENT: 1. Status post syncopal episode. No further episodes in the hospital. No apparent cardiac or neuro logical events. The patient was not orthostatic. 2. Mild hyponatremia in the setting of increased p.o. fluid intake in the setting of diuretic therap y as part of his blood pressure medication. The patient will not be discharged home on Hyzaar. He c ould have gone home on losartan alone; however, Dr. Solis placed him on Norvasc. The patient ca utioned not drink excessive amounts of fluid at home. 3. Hypertension. Blood pressure control is acceptable on present medication. 4. History of myelodysplastic syndrome, anemia, thrombocytopenia. The patient followed by hematolog y. He did receive 1 unit of packed red blood cells during the hospitalization. 5. History of gastroesophageal reflux disease, currently stable. 6. History of chronic lung disease with possible superimposed acute infiltrate. The patient did rec eive several days of antibiotic therapy. PLAN: 1. The patient to be monitored closely in the outpatient setting by Dr. Solis for blood pressur e control. I also suggest that he have a repeat set of chemistries done in the next 1-2 weeks in the outpatient setting. 2. If necessary, angiotensin receptor alejandra therapy may be added to calcium channel alejandra therap y, but under no circumstance should patient receive a diuretic. 3. The patient currently is on steroids. This dose should be tapered in the outpatient setting. Faraz Hathaway MD cc: [id number] TT: 01/10/2017 12:43:29 Confirmation # [id number] Dictation # [id number] mn
--- NOTE | 2017-01-10 13:47 | CP.PCM.PN ---
Subjective - Date & Time of Evaluation Date of Evaluation: 01/10/17 Time of Evaluation: 09:10 - Subjective Subjective: Still has cough but it has improved; no fevers overnight. Objective - Vital Signs/Intake and Output Vital Signs (last 24 hours): Temp Pulse Resp BP Pulse Ox 98.0 F 81 19 143/89 100 01/10/17 06:00 01/10/17 06:00 01/10/17 06:00 01/10/17 06:00 01/10/17 06:00 Intake and Output: 01/10/17 01/10/17 06:59 18:59 Intake Total 780 Output Total 0 Balance 780 - Labs Labs: 01/08/17 06:00 01/08/17 06:00 PT 13.9 Seconds (9.9-11.8) H 01/04/17 18:07 INR 1.29 (0.93-1.08) H 01/04/17 18:07 APTT 33.8 Seconds (23.7-30.8) H 01/04/17 18:07 - Constitutional Appears: Non-toxic, No Acute Distress - Head Exam Head Exam: NORMAL INSPECTION - Neck Exam Neck Exam: absent: Lymphadenopathy, Meningismus - Respiratory Exam Respiratory Exam: Decreased Breath Sounds - Cardiovascular Exam Cardiovascular Exam: +S1, +S2 - GI/Abdominal Exam GI & Abdominal Exam: Soft. absent: Tenderness Assessment and Plan - Assessment and Plan (Free Text) Plan: Assessment Consider healthcare-associated pneumonia (atypical) in a patient with acute bronchitis, clinically improving Syncope, etiology to be determined S/P systemic viral illness with probable Influenza HTN GERD myelodysplastic syndrome Plan continue Doxycycline (Day 6) to complete a 7 day course; blood cx are negative, Procalcitonin is only 0.10; reviewed CXR Reviewed Dr. Landry's evaluation and recommendations
== END 2017-01-10 13:41 | disposition home or self-care (01) | DRG 190 ==
LOC: ED 16:45 → ERH 21:08 → 2RNO 22:41 → 3RNO 01-05 20:01
PROVIDERS: ADMIT Internal Medicine; ATTEND Internal Medicine
PROC: 30233N1 Transfusion of Nonautologous Red Blood Cells into Peripheral Vein, Percutaneous Approach (ICD-10-PCS; principal; 2017-01-05)
PROC: 3E0F7GC Introduction of Other Therapeutic Substance into Respiratory Tract, Via Natural or Artificial Opening (ICD-10-PCS; 2017-01-05)
DX: J44.0 Chronic obstructive pulmonary disease with (acute) lower respiratory infection (principal); J18.9 Pneumonia, unspecified organism; E22.2 Syndrome of inappropriate secretion of antidiuretic hormone; D46.9 Myelodysplastic syndrome, unspecified; D69.6 Thrombocytopenia, unspecified; I10 Essential (primary) hypertension; J01.90 Acute sinusitis, unspecified; J20.9 Acute bronchitis, unspecified; R55 Syncope and collapse; K21.9 Gastro-esophageal reflux disease without esophagitis; H10.9 Unspecified conjunctivitis; R73.9 Hyperglycemia, unspecified; T38.0X5A Adverse effect of glucocorticoids and synthetic analogues, initial encounter; Z91.81 History of falling; Z87.891 Personal history of nicotine dependence; Z82.49 Family history of ischemic heart disease and other diseases of the circulatory system; Z91.041 Radiographic dye allergy status

== ENCOUNTER 2017-03-04 10:38 | Observation (INO) | payer OTHER ==
[2017-03-04 10:41] VITALS: BMI 25.7
--- NOTE | 2017-03-04 11:20 | ED PDOC ---
Arrival/HPI - General Chief Complaint: Dizziness/Lightheaded Time Seen by Provider: 03/04/17 11:03 Historian: Patient - History of Present Illness Narrative History of Present Illness (Text): 03/04/17 11:15 A 76 year old male p/w lightheadedness. Denies any headache, fever, chills, nausea, vomiting, diarrhea,abdominal pain, urinary symptoms, hematuria, hematochezia, chest pain, palpitations, syncope, shortness of breath, cough or any other complaints. Dr. Hahn states via phone that patient with recent Hb less than 8 in office with ongoing MDS. PMD: Dr. Solis Organic Preparation Analyst: Dr. Hahn Time/Duration: Prior to Arrival Symptom Course: Unchanged Quality: Other Context: Other Past Medical History - Provider Review Nursing Documentation Reviewed: Yes - Infectious Disease Hx of Infectious Diseases: None - Tetanus Immunization Tetanus Immunization: Unknown - Cardiac Hx Hypertension: Yes - Pulmonary Hx Respiratory Disorders: No - Neurological Hx Neurological Disorder: No - HEENT Hx HEENT Disorder: No - Renal Hx Renal Disorder: No - Endocrine/Metabolic Hx Endocrine Disorders: No - Hematological/Oncological Hx Blood Disorders: Yes Hx Anemia: Yes (last transfusion was december 2015) Hx Blood Transfusions: Yes Hx Chemotherapy: Yes (02/28/2017) Other/Comment: myelodysplastic syndrome - Integumentary Hx Dermatological Disorder: No - Musculoskeletal/Rheumatological Hx Back Pain: Yes Hx Falls: Yes - Gastrointestinal Hx Gastrointestinal Disorders: No - Genitourinary/Gynecological Hx Genitourinary Disorders: Yes Other/Comment: KIDNEY STONE - Psychiatric Hx Psychophysiologic Disorder: No Hx Depression: No Hx Emotional Abuse: No Hx Physical Abuse: No Hx Substance Use: No - Past Surgical History Past Surgical History: No Previous - Surgical History Other/Comment: kidney stones - Anesthesia Hx Anesthesia: Yes Hx Anesthesia Reactions: No - Suicidal Assessment Feels Threatened In Home Enviroment: No Family/Social History - Physician Review Nursing Documentation Reviewed: Yes Family/Social History: No Known Family HX Smoking Status: Never Smoked Hx Alcohol Use: Yes Hx Substance Use: No Hx Substance Use Treatment: No Allergies/Home Meds Allergies/Adverse Reactions: Allergies CONTRAST Allergy (Uncoded 03/04/17 10:41) SWELLING Review of Systems - Physician Review All systems were reviewed & negative as marked: Yes - Review of Systems Constitutional: absent: Fevers, Night Sweats Respiratory: absent: SOB, Cough Cardiovascular: absent: Chest Pain, Palpitations, Syncope Gastrointestinal: absent: Abdominal Pain, Diarrhea, Nausea, Vomiting Neurological: Other (Lightheadedness). absent: Headache Physical Exam - Physical Exam Narrative Physical Exam (Text): Constitutional: No acute distress. Head: Normocephalic. Atraumatic. Eyes: PERRL. ENT: Moist mucous membranes. Neck: Supple. Cardiovascular: Regular rate. No murmur. Chest: No tenderness. Respiratory: Clear to auscultation bilaterally. GI: Soft. Nontender. Nondistended. Back: No CVA tenderness. Musculoskeletal: No tenderness or swelling of extremities. Skin: No rash. Neurologic: Alert, no focal deficit. Vital Signs Reviewed: Yes Vital Signs Temp Pulse Resp BP Pulse Ox 03/04/17 13:39 98.8 F 79 16 121/73 03/04/17 13:24 98.7 F 77 16 125/71 03/04/17 13:17 98.7 F 77 16 125/71 100 03/04/17 12:13 77 18 116/66 100 03/04/17 10:45 98.4 F 89 20 128/68 99 Temperature: Afebrile Blood Pressure: Normal Pulse: Regular Respiratory Rate: Normal Appearance: Positive for: Well-Appearing, Non-Toxic, Comfortable Pain Distress: None Mental Status: Positive for: Alert and Oriented X 3 Finger Stick Blood Glucose: 359 Medical Decision Making ED Course and Treatment: 03/04/17 11:15 Impression: A 76 year old male p/w lightheadedness. Physical exam unremarkable. Hb found to be low. Dr. Leija accepts patient to his service for observation for blood transfusion. - Lab Interpretations Lab Results: 03/04/17 11:33 03/04/17 11:33 Lab Results 03/04/17 11:33: Blood Type O POSITIVE, Antibody Screen Negative, Crossmatch See Detail, BBK History Checked Patient has bt 03/04/17 11:33: Sodium 134, Potassium 4.0, Chloride 100, Carbon Dioxide 27, Anion Gap 11, BUN 17, Creatinine 0.6, Est GFR ( Amer) > 60, Est GFR (Non- Af Amer) > 60, Random Glucose 270 H, Calcium 8.9, Total Bilirubin 0.9, AST 20, ALT 28, Alkaline Phosphatase 89, Total Protein 7.4, Albumin 3.8, Globulin 3.6, Albumin/Globulin Ratio 1.1 03/04/17 11:33: WBC 3.9 L D, RBC 1.87 L, Hgb 7.2 L D, Hct 20.1 L*, MCV 107.5 H, MCH 38.5 H, MCHC 35.8, Plt Count 25 L*, MPV 9.2, Gran % 62.8, Lymph % (Auto) 30.2, [place] % (Auto) 5.9, Eos % (Auto) 0.3 L, Baso % (Auto) 0.8, Gran # 2.46, Lymph # 1.2, [place] # 0.2, Eos # 0.0, Baso # 0.03 I have reviewed the lab results: Yes Disposition/Present on Arrival - Present on Arrival Any Indicators Present on Arrival: No History of DVT/PE: No History of Uncontrolled Diabetes: No Urinary Catheter: No History of Decub. Ulcer: No History Surgical Site Infection Following: None - Disposition Have Diagnosis and Disposition been Completed?: Yes Diagnosis: Symptomatic anemia Disposition: HOSPITALIZED Disposition Time: 11:48 Patient Plan: Discharge Condition: STABLE
[2017-03-04 11:33] LABS: ADD MANUAL DIFF? NO
[2017-03-04 11:39] LABS: BASO # 0.03 K/mm3 (0.0-2.0); BASO % 0.8 % (0.0-3.0); EOS % 0.3 % (1.5-5.0); GRAN # 2.46 (1.4-6.5); GRAN % 62.8 % (50.0-68.0); LYMPH # 1.2 (1.2-3.4); LYMPH % 30.2 % (22.0-35.0); MEAN CELL VOLUME 107.5 fL (80.0-105.0); MEAN CORPUSCULAR HEMOGLOBIN 38.5 pg (25.0-35.0); MEAN CORPUSCULAR HGB CONC 35.8 g/dl (31.0-37.0); MEAN PLATELET VOLUME 9.2 fl (7.0-11.0); MONO # 0.2 (0.1-0.6); MONO % 5.9 % (1.0-6.0); WHITE BLOOD COUNT 3.9 10^3/ul (4.5-11.0)
[2017-03-04 11:46] LABS: HEMATOCRIT 20.1 % (42.0-52.0); PLATELET COUNT 25 10^3/uL (120.0-450.0)
[2017-03-04 11:48] LABS: ALB/GLOB RATIO 1.1 (1.1-1.8); ALKALINE PHOSPHATASE 89 U/L (38-133); ALT/SGPT 28 U/L (7-56); AST/SGOT 20 U/L (15-59); BILIRUBIN,TOTAL 0.9 mg/dL (0.2-1.3); BLOOD UREA NITROGEN 17 mg/dL (7-21); CALCIUM 8.9 mg/dL (8.4-10.5); CARBON DIOXIDE 27 mmol/L (21-33); GFR AFRICAN-AMERICAN > 60; GLUCOSE,RANDOM 270 mg/dL (70-110); SODIUM 134 mmol/L (132-148); TOTAL PROTEIN 7.4 g/dL (5.8-8.3)
[2017-03-04 11:58] LABS: CHLORIDE 100 mmol/L (98-107)
[2017-03-04] MEDS ORDERED: Pneumococcal 23-Valent Vaccine IM ONE (15:22)
--- NOTE | 2017-03-04 16:19 | CARD ---
APPROVED REPORT EKG Measurement Heart [id number] <Conclusion> Normal sinus rhythm with sinus arrhythmia Normal ECG
--- NOTE | 2017-03-04 16:23 | CP.PCM.HP ---
History of Present Illness - History of Present Illness History of Present Illness: 76 year old [place] male with history of hypertension and myelodysplastic syndrome presented to the Emergency Room for lightheadedness. Patient's hemoglobin found to be 7.2 He denies SOB, chest pain, blood in stool, hematemesis or fever. Present on Admission - Present on Admission Any Indicators Present on Admission: No Review of Systems - Constitutional Constitutional: absent: Chills, Fever - Cardiovascular Cardiovascular: absent: Chest Pain, Diaphoresis, Dyspnea - Gastrointestinal Gastrointestinal: absent: Abdominal Pain, Constipation, Diarrhea - Neurological Neurological: As Per HPI Past Patient History - Infectious Disease Hx of Infectious Diseases: None - Tetanus Immunizations Tetanus Immunization: Unknown - Past Medical History & Family History Past Medical History?: Yes - Past Social History Smoking Status: Never Smoked - CARDIAC Hx Hypertension: Yes - PULMONARY Hx Bronchitis: Yes Hx Pneumonia: Yes Other/Comment: recurrent respiratory infections - NEUROLOGICAL Hx Neurological Disorder: Yes (syncope, hyponatremia) - HEENT Hx Cataracts: Yes (b/l sx) Other/Comment: r eye conjunctivitis, sinusitis - RENAL Hx Kidney Stones: Yes (in had procedure with dr sadler) - ENDOCRINE/METABOLIC Hx Endocrine Disorders: No - HEMATOLOGICAL/ONCOLOGICAL Hx Blood Disorders: Yes Hx Anemia: Yes Hx Chemotherapy: Yes (02/28/2017 injection) Other/Comment: myelodysplastic syndrome, reaction to platelets itch - INTEGUMENTARY Hx Dermatological Problems: No - MUSCULOSKELETAL/RHEUMATOLOGICAL Hx Falls: Yes (syncope and fall in the past) - GASTROINTESTINAL Hx Gastrointestinal Disorders: Yes Hx Gastroesophageal Reflux: Yes Other/Comment: colonoscopy 11/2016 diverticulosis, colon polyps, hemorrhoids - GENITOURINARY/GYNECOLOGICAL Hx Genitourinary Disorders: Yes - PSYCHIATRIC Hx Psychophysiologic Disorder: No Hx Depression: No Hx Emotional Abuse: No Hx Physical Abuse: No - SURGICAL HISTORY Other/Comment: kidney stones, bone marrow aspiratiion and bx 11/29/16 - ANESTHESIA Hx Anesthesia: Yes Hx Anesthesia Reactions: No Meds Allergies/Adverse Reactions: Allergies Allergy/AdvReac Type Severity Reaction Status Date / Time CONTRAST Allergy SWELLING Uncoded 03/16/17 20:48 platelets AdvReac ITCHING Uncoded 03/16/17 20:48 Physical Exam - Constitutional Appears: No Acute Distress - Head Exam Head Exam: ATRAUMATIC, NORMOCEPHALIC - Respiratory Exam Respiratory Exam: Clear to Auscultation Bilateral, NORMAL BREATHING PATTERN - Cardiovascular Exam Cardiovascular Exam: +S1, +S2 - GI/Abdominal Exam GI & Abdominal Exam: Normal Bowel Sounds, Soft. absent: Tenderness - Neurological Exam Neurological exam: Alert, Oriented x3 Results - Vital Signs Recent Vital Signs: Last Vital Signs Temp 98.1 F 03/04/17 15:13 Pulse 83 03/04/17 15:13 Resp 18 03/04/17 15:13 BP 134/73 03/04/17 15:13 Pulse Ox 100 03/04/17 13:17 - Labs Result Diagrams: 03/05/17 07:00 03/04/17 11:33 Assessment & Plan - Assessment and Plan (Free Text) Assessment: Symptomatic anemia MDS HTN GERD BPH Plan: Patient feeling lightheaded with hemoglobin of 7.2 Will transfuse 2 units PRBCs. continue Norvasc for high blood pressure Protonix for GERD repeat H&H in AM
[2017-03-04] MEDS: Insulin Reg-LOW-Coverage SC SCH ×2 (16:43→22:30)
[2017-03-05 07:21] LABS: ADD MANUAL DIFF? NO
[2017-03-05 07:23] LABS: BASO # 0.02 K/mm3 (0.0-2.0); BASO % 0.7 % (0.0-3.0); EOS % 0.4 % (1.5-5.0); GRAN # 1.21 (1.4-6.5); HEMATOCRIT 25.5 % (42.0-52.0); LYMPH # 1.3 (1.2-3.4); LYMPH % 46.8 % (22.0-35.0); MEAN CORPUSCULAR HGB CONC 36.1 g/dl (31.0-37.0); MEAN PLATELET VOLUME 11.2 fl (7.0-11.0); MONO # 0.2 (0.1-0.6); MONO % 7.1 % (1.0-6.0)
[2017-03-05] MEDS ORDERED: Pantoprazole 20 mg EC Tab PO SCH (07:30)
[2017-03-05 07:34] LABS: PLATELET COUNT 27 10^3/uL (120.0-450.0); WHITE BLOOD COUNT 2.7 10^3/ul (4.5-11.0)
[2017-03-05] MEDS: Insulin Reg-LOW-Coverage SC SCH (08:00)
[2017-03-05 10:01] VITALS: BP 131/80; PULSE 65
[2017-03-05 10:35] VITALS: RESP 16; TEMP 98.3; O2SAT 100
--- NOTE | 2017-03-05 14:34 | CP.PCM.PN ---
Subjective - Date & Time of Evaluation Date of Evaluation: 03/05/17 Time of Evaluation: 08:00 - Subjective Subjective: Patient had blood transfusion yesterday for symptomatic anemia. He had no overnight events. Objective - Vital Signs/Intake and Output Vital Signs (last 24 hours): Temp Pulse Resp BP Pulse Ox 98.3 F 65 16 131/80 100 03/05/17 08:00 03/05/17 10:00 03/05/17 08:00 03/05/17 10:00 03/05/17 08:00 Intake and Output: 03/05/17 03/05/17 06:59 18:59 Intake Total 1540 Balance 1540 - Labs Labs: 03/05/17 07:00 - Constitutional Appears: No Acute Distress - Respiratory Exam Respiratory Exam: NORMAL BREATHING PATTERN - Cardiovascular Exam Cardiovascular Exam: +S1, +S2 - GI/Abdominal Exam GI & Abdominal Exam: Soft, Normal Bowel Sounds. absent: Tenderness - Extremities Exam Extremities Exam: Normal Inspection Assessment and Plan - Assessment and Plan (Free Text) Assessment: Symptomatic anemia MDS GERD Plan: Patient's hemoglobin has increased from 7.2 to 9.2. He denies lightheadedness. WBC count has dropped to 2.7. Dr. Hahn informed and patient was cleared for discharge. He will continue [facility] for hypertension and followup with Dr. Hahn for treatment of MDS
== END 2017-03-05 11:40 | disposition home or self-care (01) ==
LOC: ED 10:38 → ERH 12:09 → 5RNO 14:07
PROVIDERS: ADMIT Internal Medicine; ATTEND Internal Medicine
DX: D64.9 Anemia, unspecified (principal); D46.9 Myelodysplastic syndrome, unspecified; R42 Dizziness and giddiness; I10 Essential (primary) hypertension; K21.9 Gastro-esophageal reflux disease without esophagitis; N40.0 Benign prostatic hyperplasia without lower urinary tract symptoms; Z87.442 Personal history of urinary calculi
CPT/HCPCS: 36415; 36430; 80053; 82948; 85025; 86850; 86900; 86920; 93005; 99285; G0378; P9016

== ENCOUNTER 2017-03-16 10:47 | Observation (INO) | payer OTHER ==
[2017-03-16 10:51] VITALS: BMI 25.0
--- NOTE | 2017-03-16 11:32 | ED PDOC ---
Arrival/HPI - General Chief Complaint: Dizziness/Lightheaded Time Seen by Provider: 03/16/17 11:23 Historian: Patient, Spouse - History of Present Illness Time/Duration: Other (Several days) Symptom Onset: Gradual Symptom Course: Worsening Severity Level: Moderate Activities at Onset: Rest Associated Symptoms (Text): 03/16/17 11:29 Patient complains of a several day history of dizziness which she describes as lightheadedness and near syncope. He has a history of anemia from MDS. Recent transfusion with hemoglobin of 9.2. No chest pain palpitations or dyspnea. He had a normal CT scan of the head in December of this year. No abdominal pain nausea or vomiting. No numbness tingling or paresthesias. There is generalized, but no focal, weakness. No fever or chills. No cough congestion or URI. He states that he has had insomnia for the last 3 days. Past Medical History - Infectious Disease Hx of Infectious Diseases: None - Tetanus Immunization Tetanus Immunization: Unknown - Cardiac Hx Hypertension: Yes - Pulmonary Hx Bronchitis: Yes Hx Pneumonia: Yes Other/Comment: recurrent respiratory infections - Neurological Hx Neurological Disorder: Yes (syncope, hyponatremia) - HEENT Hx Cataracts: Yes (b/l sx) Other/Comment: r eye conjunctivitis, sinusitis - Renal Hx Kidney Stones: Yes (in had procedure with dr sadler) - Endocrine/Metabolic Hx Endocrine Disorders: No - Hematological/Oncological Hx Blood Disorders: Yes Hx Anemia: Yes (last transfusion was february 2017) Hx Chemotherapy: Yes (02/28/2017 injection) Other/Comment: myelodysplastic syndrome, reaction to platelets itch - Integumentary Hx Dermatological Disorder: No - Musculoskeletal/Rheumatological Hx Falls: Yes (syncope and fall in the past) - Gastrointestinal Hx Gastrointestinal Disorders: Yes Hx Gastroesophageal Reflux: Yes Other/Comment: colonoscopy 11/2016 diverticulosis, colon polyps, hemorrhoids - Genitourinary/Gynecological Hx Genitourinary Disorders: Yes - Psychiatric Hx Psychophysiologic Disorder: No Hx Depression: No Hx Emotional Abuse: No Hx Physical Abuse: No Hx Substance Use: No - Past Surgical History Past Surgical History: No Previous - Surgical History Other/Comment: kidney stones, bone marrow aspiratiion and bx 11/29/16 - Anesthesia Hx Anesthesia: Yes Hx Anesthesia Reactions: No - Suicidal Assessment Feels Threatened In Home Enviroment: No Family/Social History - Physician Review Nursing Documentation Reviewed: Yes Family/Social History: Unknown Family HX Smoking Status: Never Smoked Hx Alcohol Use: No Hx Substance Use: No Hx Substance Use Treatment: No Allergies/Home Meds Allergies/Adverse Reactions: Allergies CONTRAST Allergy (Uncoded 03/16/17 10:51) SWELLING platelets Adverse Reaction (Uncoded 03/16/17 10:51) ITCHING Review of Systems - Physician Review All systems were reviewed & negative as marked: Yes - Review of Systems Constitutional: Fatigue. absent: Fevers Respiratory: absent: SOB, Cough, Wheezing Cardiovascular: absent: Chest Pain, Palpitations, Syncope Gastrointestinal: absent: Abdominal Pain, Nausea, Vomiting Neurological: Dizziness. absent: Headache, Focal Weakness, Gait Changes Physical Exam Vital Signs Temp Pulse Resp BP Pulse Ox 03/16/17 10:54 98.1 F 79 19 126/71 99 Temperature: Afebrile Blood Pressure: Normal Pulse: Regular Respiratory Rate: Normal Appearance: Positive for: Well-Appearing, Non-Toxic, Uncomfortable Pain Distress: None Mental Status: Positive for: Alert and Oriented X 3 Finger Stick Blood Glucose: 206 - Systems Exam Head: Present: Atraumatic, Normocephalic Pupils: Present: PERRL Extroacular Muscles: Present: EOMI Conjunctiva: Present: Normal Ears: Present: NORMAL TM, Normal Canal. No: Erythema Mouth: Present: Moist Mucous Membranes Pharnyx: No: ERYTHEMA, EXUDATE, TONSILS ENLARGED Neck: Present: Normal Range of Motion Respiratory/Chest: Present: Clear to Auscultation, Good Air Exchange, Decreased Breath Sounds. No: Respiratory Distress, Accessory Muscle Use Cardiovascular: Present: Regular Rate and Rhythm, Normal S1, S2. No: Murmurs Abdomen: Present: Normal Bowel Sounds. No: Tenderness, Distention, Peritoneal Signs Upper Extremity: Present: Normal Inspection. No: Cyanosis, Edema Lower Extremity: Present: Normal Inspection. No: Edema Neurological: Present: GCS=15, CN II-XII Intact, Speech Normal, Motor Func Grossly Intact, Normal Sensory Function, Normal Cerebellar Funct Skin: Present: Warm, Dry, Normal Color. No: Rashes Psychiatric: Present: Alert, Oriented x 3, Normal Insight, Normal Concentration Medical Decision Making - Lab Interpretations Lab Results: 03/16/17 11:45 03/16/17 11:45 Lab Results 03/16/17 11:45: Sodium 137, Potassium 3.8, Chloride 103, Carbon Dioxide 28, Anion Gap 10, BUN 14, Creatinine 0.7, Est GFR ( Amer) > 60, Est GFR (Non- Af Amer) > 60, Random Glucose 137 H, Calcium 9.2, Total Bilirubin 0.8, AST 26, ALT 21, Alkaline Phosphatase 74, Lactate Dehydrogenase 352, Total Creatine Kinase < 20 L, Troponin I < 0.01, Total Protein 7.8, Albumin 3.8, Globulin 4.0, Albumin/Globulin Ratio 1.0 L 03/16/17 11:45: WBC 4.3 L D, RBC 2.26 L, Hgb 7.7 L, Hct 22.9 L, MCV 101.3, MCH 34.1, MCHC 33.6, RDW 23.0 H, Plt Count 44 L*, MPV 10.5, Gran % 60.7, Lymph % ( Auto) 32.7, Williams % (Auto) 4.7, Eos % (Auto) 1.4 L, Baso % (Auto) 0.5, Gran # 2.58, Lymph # 1.4, Williams # 0.2, Eos # 0.1, Baso # 0.02 03/16/17 10:58: POC Glucose (mg/dL) 206 H - RAD Interpretation Radiology Orders: 03/16/17 11:29 CHEST PORTABLE [RAD] Stat Disposition/Present on Arrival - Present on Arrival Any Indicators Present on Arrival: No History of DVT/PE: No History of Uncontrolled Diabetes: No Urinary Catheter: No History of Decub. Ulcer: No History Surgical Site Infection Following: None - Disposition Have Diagnosis and Disposition been Completed?: Yes Diagnosis: Anemia Disposition: HOSPITALIZED Disposition Time: 12:31 Patient Plan: Observation Condition: FAIR Referrals: PCP,NO [Primary Care Provider] - Follow up with primary
[2017-03-16 12:07] LABS: BASO # 0.02 K/mm3 (0.0-2.0); BASO % 0.5 % (0.0-3.0); EOS # 0.1 (0.0-0.7); EOS % 1.4 % (1.5-5.0); GRAN # 2.58 (1.4-6.5); GRAN % 60.7 % (50.0-68.0); LYMPH # 1.4 (1.2-3.4); LYMPH % 32.7 % (22.0-35.0); MEAN CELL VOLUME 101.3 fL (80.0-105.0); MEAN CORPUSCULAR HEMOGLOBIN 34.1 pg (25.0-35.0); MEAN CORPUSCULAR HGB CONC 33.6 g/dl (31.0-37.0); MEAN PLATELET VOLUME 10.5 fl (7.0-11.0); MONO # 0.2 (0.1-0.6); MONO % 4.7 % (1.0-6.0); PLATELET COUNT 44 10^3/uL (120.0-450.0); WHITE BLOOD COUNT 4.3 10^3/ul (4.5-11.0)
[2017-03-16 12:10] LABS: ALKALINE PHOSPHATASE 74 U/L (38-133); ALT/SGPT 21 U/L (7-56); AST/SGOT 26 U/L (15-59); BILIRUBIN,TOTAL 0.8 mg/dL (0.2-1.3); BLOOD UREA NITROGEN 14 mg/dL (7-21); CALCIUM 9.2 mg/dL (8.4-10.5); CARBON DIOXIDE 28 mmol/L (21-33); CHLORIDE 103 mmol/L (98-107); GFR AFRICAN-AMERICAN > 60; GLUCOSE,RANDOM 137 mg/dL (70-110); POTASSIUM 3.8 mmol/L (3.6-5.0); SODIUM 137 mmol/L (132-148); TOTAL PROTEIN 7.8 g/dL (5.8-8.3)
[2017-03-16 12:11] LABS: ADD MANUAL DIFF? NO; HEMATOCRIT 22.9 % (42.0-52.0)
[2017-03-16 12:23] LABS: TROPONIN I < 0.01 ng/mL
[2017-03-16 12:29] LABS: INR 1.06 (0.93-1.08); PARTIAL THROMBOPLASTIN TIME 28.2 Seconds (23.7-30.8)
--- NOTE | 2017-03-16 13:48 | RAD ---
HISTORY: Dizziness COMPARISON: 01/04/2017. FINDINGS: LUNGS: The lungs are well inflated and clear. PLEURA: No significant pleural effusion identified, no pneumothorax apparent. CARDIOVASCULAR: Normal. OSSEOUS STRUCTURES: No significant abnormalities. VISUALIZED UPPER ABDOMEN: Normal. OTHER FINDINGS: None. IMPRESSION: No active pulmonary disease.
--- NOTE | 2017-03-16 14:08 | CP.PCM.HP ---
History of Present Illness - History of Present Illness History of Present Illness: This ia 76 year old [place] male with history of myelodysplastic syndrome and hypertension who presented to the Emergency Room today with dizziness for the last few days. He describes a feeling of lightheadedness and near syncope. He denies fever, chills, cough, numbness or tingling. Present on Admission - Present on Admission Any Indicators Present on Admission: No Review of Systems - Constitutional Constitutional: absent: Chills - Cardiovascular Cardiovascular: absent: Chest Pain, Diaphoresis, Dyspnea - Respiratory Respiratory: absent: Cough, Dyspnea - Gastrointestinal Gastrointestinal: absent: Abdominal Pain, Diarrhea, Dyspepsia - Neurological Neurological: As Per HPI Past Patient History - Infectious Disease Hx of Infectious Diseases: None - Tetanus Immunizations Tetanus Immunization: Unknown - Past Medical History & Family History Past Medical History?: Yes - Past Social History Smoking Status: Never Smoked - CARDIAC Hx Hypertension: Yes - PULMONARY Hx Bronchitis: Yes Hx Pneumonia: Yes Other/Comment: recurrent respiratory infections - NEUROLOGICAL Hx Neurological Disorder: Yes (syncope, hyponatremia) - HEENT Hx Cataracts: Yes (b/l sx) Other/Comment: r eye conjunctivitis, sinusitis - RENAL Hx Kidney Stones: Yes (in 1989's had procedure [address] dr sadler) - ENDOCRINE/METABOLIC Hx Endocrine Disorders: No - HEMATOLOGICAL/ONCOLOGICAL Hx Blood Disorders: Yes Hx Anemia: Yes (last transfusion was february 2017) Hx Chemotherapy: Yes (02/28/2017 injection) Other/Comment: myelodysplastic syndrome, reaction to platelets itch - INTEGUMENTARY Hx Dermatological Problems: No - MUSCULOSKELETAL/RHEUMATOLOGICAL Hx Falls: Yes (syncope and fall in the past) - GASTROINTESTINAL Hx Gastrointestinal Disorders: Yes Hx Gastroesophageal Reflux: Yes Other/Comment: colonoscopy 11/2016 diverticulosis, colon polyps, hemorrhoids - GENITOURINARY/GYNECOLOGICAL Hx Genitourinary Disorders: Yes - PSYCHIATRIC Hx Psychophysiologic Disorder: No Hx Depression: No Hx Emotional Abuse: No Hx Physical Abuse: No Hx Substance Use: No - SURGICAL HISTORY Other/Comment: kidney stones, bone marrow aspiratiion and bx 11/29/16 - ANESTHESIA Hx Anesthesia: Yes Hx Anesthesia Reactions: No Meds Allergies/Adverse Reactions: Allergies Allergy/AdvReac Type Severity Reaction Status Date / Time CONTRAST Allergy SWELLING Uncoded 03/16/17 10:51 platelets AdvReac ITCHING Uncoded 03/16/17 10:51 Physical Exam - Head Exam Head Exam: ATRAUMATIC, NORMOCEPHALIC - Respiratory Exam Respiratory Exam: Clear to Auscultation Bilateral, NORMAL BREATHING PATTERN - Cardiovascular Exam Cardiovascular Exam: +S1, +S2 - GI/Abdominal Exam GI & Abdominal Exam: Normal Bowel Sounds, Soft. absent: Tenderness - Extremities Exam Extremities exam: Positive for: normal inspection Results - Vital Signs Recent Vital Signs: Last Vital Signs Temp 98.1 F 03/16/17 10:54 Pulse 70 03/16/17 13:14 Resp 18 03/16/17 13:14 BP 114/67 03/16/17 13:14 Pulse Ox 100 03/16/17 13:14 - Labs Result Diagrams: 03/16/17 11:45 03/16/17 11:45 Assessment & Plan - Assessment and Plan (Free Text) Assessment: Symptomatic anemia Myelodysplastic syndrome HTN Plan: Patient with dizziness and lightheadedness with a hemoglobin of 7.7 blood tranfusion re-check hemoglobin continue antihypertensives
--- NOTE | 2017-03-16 16:12 | CARD ---
APPROVED REPORT EKG Measurement Heart [id number] <Conclusion> Normal sinus rhythm Normal ECG
[2017-03-16] MEDS ORDERED: Pneumococcal 23-Valent Vaccine IM ONE (22:35)
[2017-03-16 23:04] VITALS: RESP 20
[2017-03-16 23:43] LABS: URINE BILIRUBIN NEGATIVE (NEGATIVE); URINE BLOOD TRACE-LYSED (NEGATIVE); URINE GLUCOSE (UA) NEGATIVE (NEGATIVE); URINE KETONE NEGATIVE (NEGATIVE); URINE LEUKOCYTE ESTERASE NEGATIVE Leu/uL (NEGATIVE); URINE PROTEIN NEGATIVE mg/dL (<30 mg/dL); URINE UROBILINOGEN 0.2 E.U./dL (<1 E.U./dL)
[2017-03-16 23:59] LABS: URINE APPEARANCE CLEAR (CLEAR); URINE COLOR YELLOW (YELLOW)
[2017-03-17] LABS: URINE AMORPHOUS SEDIMENT MODERATE; URINE EPITHELIAL CELLS 0 - 2 /hpf (0-5); URINE RBC 0 - 2 /hpf (0-2); URINE WBC 0 - 2 /hpf (0-6)
--- NOTE | 2017-03-17 00:24 | CP.PCM.CON ---
History of Present Illness - History of Present Illness History of Present Illness: Mr. Joel is a 76 year old male , presented to Ed with diziness since morning. His called in morning that she is taking Mr. Joel to ED. He has MDS currently getting Vidaza and aranesp. His last dose of aranesp was a week ago. He was recently transfused 2 units of PRBC. Hb in ER is 7.7 gm/dl. He has been feeling weak. He has insomnia. he does not get enough sleep in night. stating that he watches TV all night. He was prescribed xanax 0.25 mg , could sleep for 4 hours with that. No chest pain, nausea. complaining of urinary frequency. No fever, cough. Status post neupogen with recovery in WC and platelet count. N bleeding. Review of Systems - Constitutional Constitutional: As Per HPI, Fatigue, Malaise - EENT Eyes: absent: As Per HPI, Blind Spots, Blurred Vision, Change in Vision, Decreased Night Vision, Diplopia, Discharge, Dry Eye, Exophthalmos, Floaters, Irritation, Itchy Eyes, Loss of Peripheral Vision, Pain, Photophobia, Requires Corrective Lenses, Sees Flashes, Spots in Vision, Tunnel Vision, Other Visual Disturbances, Loss of Vision, Other - Cardiovascular Cardiovascular: absent: As Per HPI, Acrocyanosis, Chest Pain, Chest Pain at Rest , Chest Pain with Activity, Claudication, Diaphoresis, Dyspnea, Dyspnea on Exertion, Edema, Irregular Heart Rhythm, Pain Radiating to Arm/Neck/Jaw, Leg Edema, Leg Ulcers, Lightheadedness, Orthopnea, Palpitations, Paroxysmal Nocturnal Dyspnea, Pedal Edema, Radiating Pain, Rapid Heart Rate, Slow Heart Rate, Syncope, Other - Respiratory Respiratory: absent: As Per HPI, Cough, Dyspnea, Hemoptysis, Dyspnea on Exertion , Wheezing, Snoring, Stridor, Pain on Inspiration, Chest Congestion, Excessive Mucous Production, Change in Mucous Color, Pain with Coughing, Other - Gastrointestinal Gastrointestinal: absent: As Per HPI, Abdominal Pain, Belching, Bloating, Change in Bowel Habits, Change in Stool Character, Coffee Ground Emesis, Constipation, Cramping, Diarrhea, Dyspepsia, Dysphagia, Early Satiety, Excessive Flatus, Fecal Incontinence, Heartburn, Hematemesis, Hematochezia, Loose Stools, Melena, Nausea, Odynophagia, Temesmus, Vomiting, Other - Genitourinary Genitourinary: Urinary Frequency - Musculoskeletal Musculoskeletal: As Per HPI - Neurological Neurological: absent: As Per HPI, Abnormal Gait, Abnormal Hearing, Abnormal Movements, Abnormal Speech, Behavioral Changes, Burning Sensations, Confusion, Convulsions, Disequilibrium, Dizziness, Numbness, Focal Weakness, Frequent Falls , Headaches, Lack of Coordination, Loss of Vision, Memory Loss, Paresthesias, Radicular Pain, Restless Legs, Sensory Deficit, Syncope, Tingling, Tremor, Vertigo, Weakness, Other Visual Disturbances, Other - Psychiatric Psychiatric: absent: As Per HPI, Abnormal Sleep Pattern, Anhedonia, Anxiety, Auditory Hallucinations, Behavioral Changes, Change in Appetite, Change in Libido, Confusion, Depression, Difficulty Concentrating, Hallucinations, Homicidal Ideation, Hopelessness, Irritability, Memory Loss, Mood Swings, Panic Attacks, Paranoia, Suicidal Ideation, Visual Hallucinations, Tactile Hallucinations, Other - Endocrine Endocrine: absent: As Per HPI, Change in Body Appearance, Change in Libido, Cold Intolorance, Deepening of Voice, Excessive Sweating, Fatigue, Flushing, Heat Intolorance, Increase in Ring/Shoe/Hat Size, Palpitations, Polydipsia, Polyphagia, Polyuria, Other - Hematologic/Lymphatic Hematologic: As Per HPI Past Patient History - Infectious Disease Hx of Infectious Diseases: None - Tetanus Immunizations Tetanus Immunization: Unknown - Past Medical History & Family History Past Medical History?: Yes Past Family History: Reviewed and not pertinent - Past Social History Smoking Status: Former Smoker - CARDIAC Hx Cardiac Disorders: Yes Hx Hypertension: Yes - PULMONARY Hx Respiratory Disorders: Yes (H/O OF SMOKING CIGARETTES SOCIALLY QUIT) Hx Bronchitis: Yes Hx Pneumonia: Yes Other/Comment: recurrent respiratory infections - NEUROLOGICAL Hx Neurological Disorder: Yes (syncope, hyponatremia) - HEENT Hx HEENT Problems: Yes Hx Cataracts: Yes (b/l sx) Other/Comment: r eye conjunctivitis, sinusitis - RENAL Hx Kidney Stones: Yes (in had procedure with dr sadler) - ENDOCRINE/METABOLIC Hx Endocrine Disorders: No - HEMATOLOGICAL/ONCOLOGICAL Hx Blood Disorders: Yes Hx Anemia: Yes (last transfusion -03-16-17) Hx Chemotherapy: Yes (02/28/2017 injection) Other/Comment: myelodysplastic syndrome, reaction to platelets itch - INTEGUMENTARY Hx Dermatological Problems: No - MUSCULOSKELETAL/RHEUMATOLOGICAL Hx Musculoskeletal Disorders: Yes Hx Falls: Yes (syncope and fall in the past) - GASTROINTESTINAL Hx Gastrointestinal Disorders: Yes Hx Gastroesophageal Reflux: Yes Other/Comment: colonoscopy 11/2016 diverticulosis, colon polyps, hemorrhoids - GENITOURINARY/GYNECOLOGICAL Hx Genitourinary Disorders: Yes - PSYCHIATRIC Hx Psychophysiologic Disorder: No Hx Depression: No Hx Emotional Abuse: No Hx Physical Abuse: No Hx Substance Use: No - SURGICAL HISTORY Hx Surgeries: Yes Other/Comment: kidney stones, bone marrow aspiratiion and bx 11/29/16 - ANESTHESIA Hx Anesthesia: Yes Hx Anesthesia Reactions: No Meds Allergies/Adverse Reactions: Allergies Allergy/AdvReac Type Severity Reaction Status Date / Time CONTRAST Allergy SWELLING Uncoded 03/16/17 20:48 platelets AdvReac ITCHING Uncoded 03/16/17 20:48 - Medications Medications: Current Medications Amlodipine Besylate (Norvasc) 5 mg PO DAILY HUANG Zolpidem Tartrate (Ambien) 5 mg PO HS HUANG PRN Reason: Protocol Physical Exam - Constitutional Appears: Well - Head Exam Head Exam: ATRAUMATIC, NORMAL INSPECTION, NORMOCEPHALIC - Eye Exam Eye Exam: Normal appearance Pupil Exam: NORMAL ACCOMODATION - ENT Exam ENT Exam: Mucous Membranes Moist, Normal Exam - Neck Exam Neck exam: Positive for: Normal Inspection - Respiratory Exam Respiratory Exam: Clear to Auscultation Bilateral, NORMAL BREATHING PATTERN - Cardiovascular Exam Cardiovascular Exam: REGULAR RHYTHM, +S1, +S2 - GI/Abdominal Exam GI & Abdominal Exam: Normal Bowel Sounds - Back Exam Back exam: NORMAL INSPECTION - Skin Skin Exam: Normal Color, Warm Results - Vital Signs Recent Vital Signs: Last Vital Signs Temp 98.7 F 03/16/17 23:26 Pulse 81 03/16/17 23:26 Resp 20 03/16/17 23:26 BP 134/75 03/16/17 23:26 Pulse Ox 98 03/16/17 16:00 - Labs Result Diagrams: 03/16/17 11:45 03/16/17 11:45 Labs: Laboratory Results - last 24 hr 03/16/17 23:20 Urine Color Yellow Urine Appearance Clear Urine pH 7.0 Ur Specific [place] 1.010 Urine Protein Negative Urine Glucose (UA) Negative Urine Ketones Negative Urine Blood Trace-lysed H Urine Nitrate Negative Urine Bilirubin Negative Urine Urobilinogen 0.2 Ur Leukocyte Esterase Negative Urine RBC 0 - 2 Urine WBC 0 - 2 Ur Epithelial Cells 0 - 2 Amorphous Sediment Moderate Assessment & Plan - Assessment and Plan (Free Text) Assessment: 1. MDS 2. Pancytopenia 3. Insomnia 4. Urinary frequency Plan : 1. MDS : on vidaza, s/p first cycle of chemo. s/p neupogen. WC, platelet counts recovered. Plt 40k. Hb declined to 7.7 gm/dl. On aranesp 200 mcgm Q 2weeks. He has been getting it for past 2 months. His HB remains around 8 gm/dl. I will change it to procrit 40,000 Units weekly It might take few cycles of chemo before blood counts improve. received 1 units of PRBC. 1 more unit to be given . procrit 40,000 units , one dose. 2. Pancytopenia : blood counts recovering. 3. urinary frequency : r/o UTI - urine culture, UA ordered. 4. Insomnia : mgm as per Dr. Leija. Thank you Dr. Leija for allowing us to participate in his care. - Date & Time Date: 03/17/17 Time: 18:00
[2017-03-17 01:40] VITALS: TEMP 98.4
[2017-03-17 08:12] LABS: ADD MANUAL DIFF? NO
[2017-03-17 08:16] LABS: BASO # 0.03 K/mm3 (0.0-2.0); BASO % 0.7 % (0.0-3.0); EOS # 0.1 (0.0-0.7); EOS % 1.4 % (1.5-5.0); GRAN # 2.49 (1.4-6.5); HEMATOCRIT 28.4 % (42.0-52.0); LYMPH # 1.5 (1.2-3.4); LYMPH % 35.7 % (22.0-35.0); MEAN CELL VOLUME 95.9 fL (80.0-105.0); MEAN CORPUSCULAR HEMOGLOBIN 33.1 pg (25.0-35.0); MEAN CORPUSCULAR HGB CONC 34.5 g/dl (31.0-37.0); MEAN PLATELET VOLUME 10.7 fl (7.0-11.0); MONO # 0.2 (0.1-0.6); MONO % 4.2 % (1.0-6.0); PLATELET COUNT 49 10^3/uL (120.0-450.0); WHITE BLOOD COUNT 4.3 10^3/ul (4.5-11.0)
--- NOTE | 2017-03-17 08:48 | PN ---
DATE: 03/17/2017 The patient is in the [facility] in [place], room 578, bed 2. The patient was admitted with anemia, weakness, and shortness of breath. The patient has history of myelodysplastic syndrome. The patient also has a history of hypertension. He received 2 units of blood yesterday. PHYSICAL EXAMINATION: VITAL SIGNS: This morning, pulse is 56, blood pressure 123/85, respirations are 20, and temperature 98.4. GENERAL: The patient is seen. He is comfortable and he states that he feels much better. HEAD: Normocephalic. LUNGS: Trachea central. Breath sounds vesicular. No adventitious sounds. HEART: Normal sinus rhythm. S1, S2 present. ABDOMEN: Soft. Liver, spleen not palpable. CENTRAL NERVOUS SYSTEM: No focal neurological deficits. The patient has an ongoing diagnosis of myelodysplastic syndrome associated with chronic anemia. At this time, the patient's CBC will be repeated. The patient will be discharged from the [facility], and he will follow up with water and fire technician, Dr. Hahn. The patient's hemoglobin at the time of admission was 7.7 and his platelet count was 44,000; his white count was 4300. The current CBC level is not noted, but the patient has had a draw done this morning and this will be reported prior to the patient leaving the hospital. Mervin Solis MD cc: [id number] TT: 03/17/2017 08:47:45 Confirmation # [id number] Dictation # [id number] isabella CORMIER
[2017-03-17 08:58] VITALS: BP 125/78; PULSE 64; O2SAT 97
[2017-03-17 09:21] LABS: BLOOD UREA NITROGEN 13 mg/dL (7-21); CALCIUM 9.3 mg/dL (8.4-10.5); CARBON DIOXIDE 27 mmol/L (21-33); CHLORIDE 102 mmol/L (98-107); GFR AFRICAN-AMERICAN > 60; GLUCOSE,RANDOM 108 mg/dL (70-110); SODIUM 138 mmol/L (132-148)
--- NOTE | 2017-04-09 17:29 | DS ---
BRIEF HISTORY: This is a 76-year-old [place] male with history of myelodysplastic syndrome and hypertension who presented to the Emergency Room with dizziness for a few days. He described a feeling of lightheadedness and near syncope. He denied fever, chills, cough, numbness or tingling. LABORATORY DATA: His hemoglobin on admission was 7.7, hematocrit 22.9, platelets 44 and white count 4.3. HOSPITAL COURSE: He was admitted to the general medical floor for symptomatic anemia and was typed and crossed for 2 units of packed red blood cells. He was continued on his antihypertensive medication and transfused 2 units of PRBCs. The next day, his hemoglobin was 9.8, hematocrit 28.4. The patient was feeling better. He was discharged home in stable condition. DISCHARGE DIAGNOSES: Symptomatic anemia, myelodysplastic syndrome, hypertension. DISCHARGE MEDICATIONS: Norvasc 5 mg once a day, Ambien 5 mg at night as needed for insomnia. FOLLOWUP: The patient will followup with his language instructor, Dr. Hahn Lauren Solis MD cc: [id number] TT: 04/09/2017 17:28:11 isabella CORMIER
== END 2017-03-17 11:50 | disposition home or self-care (01) ==
LOC: ED 10:47 → ERH 12:29 → 5RSO 14:40
PROVIDERS: ADMIT Internal Medicine; ATTEND Internal Medicine
DX: D64.9 Anemia, unspecified (principal); D46.9 Myelodysplastic syndrome, unspecified; I10 Essential (primary) hypertension; D61.818 Other pancytopenia; G47.00 Insomnia, unspecified; R35.0 Frequency of micturition
CPT/HCPCS: 36415; 36430; 71010; 80048; 80053; 81001; 82550; 82948; 83615; 84484; 85025; 85610; 85730; 86850; 86900; 86920; 87086; 93005; 99285; G0378; P9016

== ENCOUNTER 2017-09-11 14:04 | Emergency (ER) | payer OTHER ==
[2017-09-11 14:04] VITALS: BMI 25.0
[2017-09-11 14:46] VITALS: TEMP 98.6
--- NOTE | 2017-09-11 15:06 | ED PDOC ---
Arrival/HPI - General Chief Complaint: Cough, Cold, Congestion Time Seen by Provider: 09/11/17 14:22 Historian: Patient - History of Present Illness Narrative History of Present Illness (Text): 09/11/17 15:03 77 yo male with h/o anemia, myelodysplastic syndrome, and HTN, presents to the ED c/o cough, sore throat, nasal congestion, sneezing, weakness and bodyaches x 3 days. No fever or chills, No lightheadedness or dizziness. States he is eating and drinking fluids normal. PMD: [employer] Operator: Jeanne Past Medical History - Provider Review Nursing Documentation Reviewed: Yes - Infectious Disease Hx of Infectious Diseases: None - Tetanus Immunization Tetanus Immunization: Unknown - Cardiac Hx Hypertension: Yes - Pulmonary Hx Bronchitis: Yes Hx Pneumonia: Yes Other/Comment: recurrent respiratory infections - Neurological Hx Neurological Disorder: Yes (syncope, hyponatremia) - HEENT Hx Cataracts: Yes (b/l sx) Other/Comment: r eye conjunctivitis, sinusitis - Renal Hx Kidney Stones: Yes (in had procedure with dr sadler) - Endocrine/Metabolic Hx Endocrine Disorders: No - Hematological/Oncological Hx Anemia: Yes (last transfusion -03-16-17) Other/Comment: MDS - Integumentary Hx Dermatological Disorder: No - Musculoskeletal/Rheumatological Hx Falls: Yes (syncope and fall in the past) - Gastrointestinal Hx Gastrointestinal Disorders: Yes Hx Gastroesophageal Reflux: Yes Other/Comment: colonoscopy 11/2016 diverticulosis, colon polyps, hemorrhoids - Genitourinary/Gynecological Hx Genitourinary Disorders: No - Psychiatric Hx Psychophysiologic Disorder: No Hx Substance Use: No - Past Surgical History Past Surgical History: No Previous - Surgical History Other/Comment: kidney stones, bone marrow aspiratiion and bx 11/29/16 - Anesthesia Hx Anesthesia: Yes Hx Anesthesia Reactions: No - Suicidal Assessment Feels Threatened In Home Enviroment: No Family/Social History - Physician Review Nursing Documentation Reviewed: Yes Family/Social History: No Known Family HX Smoking Status: Former Smoker Hx Alcohol Use: Yes (SOCIALLY) Hx Substance Use: No Hx Substance Use Treatment: No Allergies/Home Meds Allergies/Adverse Reactions: Allergies CONTRAST Allergy (Uncoded 09/11/17 14:47) SWELLING platelets Adverse Reaction (Uncoded 09/11/17 14:47) ITCHING Review of Systems - Physician Review All systems were reviewed & negative as marked: Yes - Review of Systems Constitutional: Normal, Fatigue. absent: Weight Change, Fevers, Night Sweats Eyes: Normal ENT: Normal Respiratory: Cough. absent: SOB, Wheezing Cardiovascular: Normal. absent: Chest Pain, RAUSCH, Orthopnea Gastrointestinal: Normal Genitourinary Male: Normal Musculoskeletal: Normal Skin: Normal Neurological: Normal. absent: Dizziness, Focal Weakness Endocrine: Normal Hemo/Lymphatic: Normal Psychiatric: Normal Physical Exam Vital Signs Reviewed: Yes Vital Signs Temp Pulse Resp BP Pulse Ox 09/11/17 14:38 98.6 F 75 18 133/76 99 Temperature: Afebrile Blood Pressure: Normal Pulse: Regular Respiratory Rate: Normal Appearance: Positive for: Well-Appearing, Non-Toxic, Comfortable Pain Distress: None Mental Status: Positive for: Alert and Oriented X 3 - Systems Exam Head: Present: Atraumatic, Normocephalic Pupils: Present: PERRL Extroacular Muscles: Present: EOMI Conjunctiva: Present: Normal Mouth: Present: Moist Mucous Membranes Pharnyx: Present: Normal. No: ERYTHEMA, EXUDATE, TONSILS ENLARGED, Peritonsilar Swelling, Uvular Deviation, Muffled/Hoarse Voice Nose (Internal): Present: Normal Inspection Neck: Present: Normal Range of Motion. No: Meningeal Signs Respiratory/Chest: Present: Clear to Auscultation, Good Air Exchange. No: Respiratory Distress, Accessory Muscle Use, Wheezes, Rales, Retracting Cardiovascular: Present: Regular Rate and Rhythm Abdomen: Present: Normal Bowel Sounds. No: Tenderness Back: Present: Normal Inspection. No: Paraspinal Tenderness Upper Extremity: Present: Normal Inspection Lower Extremity: Present: Normal Inspection Neurological: Present: GCS=15, CN II-XII Intact Skin: Present: Warm Psychiatric: Present: Alert, Oriented x 3, Normal Insight, Normal Concentration Medical Decision Making ED Course and Treatment: 09/11/17 15:07 77 yo male with URI / Viral Syndrome symptoms r/o PNA -- Labs -- Influenza, Strep swab -- CXR -- Reevaluate and disposition 09/11/17 17:14 Patient's labs reviewed showed low WBC. CXR with no PNA. Considering his medical history will treat with Azithromycin and have him with close f/u with Dr. Hahn and PMD Dr. Leija. Patient is in no acute distress. He will f/u with his PMD and return to the ED if symptoms worsen or any other concern. - Lab Interpretations Lab Results: 09/11/17 15:40 09/11/17 15:40 Lab Results 09/11/17 15:40: Sodium 139, Potassium 4.1, Chloride 104, Carbon Dioxide 27, Anion Gap 13, BUN 17, Creatinine 0.7 L, Est GFR ( Amer) > 60, Est GFR ( Non-Af Amer) > 60, Random Glucose 200 H, Calcium 9.0, Magnesium 1.8 09/11/17 15:40: WBC 2.5 L* D, RBC 3.04 L, Hgb 10.2 L, Hct 30.8 L, MCV 101.3, MCH 33.6, MCHC 33.1, RDW 15.0 H, Plt Count 106 L, MPV 9.4, Gran % 42.1 L, Lymph % (Auto) 48.0 H, Stephenson % (Auto) 7.9 H, Eos % (Auto) 1.2 L, Baso % (Auto) 0.8, Gran # 1.07 L, Lymph # 1.2, Stephenson # 0.2, Eos # 0.0, Baso # 0.02 09/11/17 15:40: Influenza Typ A,B (EIA) Negative for flu a/b 09/11/17 15:40: Grp A Beta Strep Ag Negative I have reviewed the lab results: Yes - RAD Interpretation Radiology Orders: 09/11/17 15:02 CHEST TWO VIEWS (PA/LAT) [RAD] Stat Disposition/Present on Arrival - Present on Arrival Any Indicators Present on Arrival: No History of DVT/PE: No History of Uncontrolled Diabetes: No Urinary Catheter: No History of Decub. Ulcer: No History Surgical Site Infection Following: None - Disposition Have Diagnosis and Disposition been Completed?: Yes Diagnosis: Viral syndrome Disposition: HOME/ ROUTINE Disposition Time: 17:17 Patient Problems: Current Active Problems Problem Status Onset Viral syndrome Acute Condition: IMPROVED Discharge Instructions (ExitCare): Viral Syndrome (ED), Acute Bronchitis (ED) Additional Instructions: Mr Joel, thank you for letting us take care of you today. Your provider was Dr. Livingston. You were treated for Viral Syndrome/Bronchitis. The emergency medical care you received today was directed at your acute symptoms. If you were prescribed any medication, please fill it and take as directed. It may take several days for your symptoms to resolve. Return to the Emergency Department if your symptoms worsen, do not improve, or if you have any other problems. Please contact your doctor or call one of the physicians/clinics you have been referred to that are listed on the Patient Visit Information form that is included in your discharge packet. Bring any paperwork you were given at discharge with you along with any medications you are taking to your follow up visit. Our treatment cannot replace ongoing medical care by a primary care provider (PCP) outside of the emergency department. Thank you for allowing the [facility] team to be part of your care today. If you had an X-Ray or CT scan: A Radiologist will review the ED reading if any change in treatment is needed we will contact you. If you had a blood, urine, or wound culture: It will take several days for the results, if any change in treatment is needed we will contact you. If you had an STI test: It will take 48 hours for the results. Please call after 1 week if you have not heard back. Prescriptions: Azithromycin [Z-Darvin] 250 mg PO DAILY #4 tab Referrals: Rekha Solis MD [Primary Care Provider] - Follow up with primary Staci Hahn MD [Staff Provider] - Follow up with primary Forms: [employer] (Uzbek)
[2017-09-11 15:55] LABS: BLOOD UREA NITROGEN 17 mg/dL (7-21); CARBON DIOXIDE 27 mmol/L (21-33); CHLORIDE 104 mmol/L (98-107); GFR AFRICAN-AMERICAN > 60; GLUCOSE,RANDOM 200 mg/dL (70-110); MAGNESIUM 1.8 mg/dL (1.7-2.2); POTASSIUM 4.1 mmol/L (3.6-5.0); SODIUM 139 mmol/L (132-148)
[2017-09-11 16:11] LABS: BASO # 0.02 K/mm3 (0.0-2.0); BASO % 0.8 % (0.0-3.0); EOS % 1.2 % (1.5-5.0); GRAN # 1.07 (1.4-6.5); GRAN % 42.1 % (50.0-68.0); HEMATOCRIT 30.8 % (42.0-52.0); LYMPH # 1.2 (1.2-3.4); MEAN CELL VOLUME 101.3 fl (80.0-105.0); MEAN CORPUSCULAR HEMOGLOBIN 33.6 pg (25.0-35.0); MEAN CORPUSCULAR HGB CONC 33.1 g/dl (31.0-37.0); MEAN PLATELET VOLUME 9.4 fl (7.0-11.0); MONO # 0.2 (0.1-0.6); MONO % 7.9 % (1.0-6.0)
[2017-09-11 16:18] LABS: WHITE BLOOD COUNT 2.5 10^3/ul (4.5-11.0)
[2017-09-11 23:34] VITALS: BP 130/89; PULSE 70; RESP 16; O2SAT 100
--- NOTE | 2017-09-12 09:08 | RAD ---
HISTORY: cough r/o pna COMPARISON: 03/16/2017 TECHNIQUE: Chest PA and lateral FINDINGS: LUNGS: No active pulmonary disease. PLEURA: No significant pleural effusion identified. No pneumothorax apparent. CARDIOVASCULAR: Normal. OSSEOUS STRUCTURES: No significant abnormalities. VISUALIZED UPPER ABDOMEN: Normal. OTHER FINDINGS: None. IMPRESSION: No active disease.
== END 2017-09-11 17:42 | disposition home or self-care (01) ==
LOC: ED 14:04
DX: B34.9 Viral infection, unspecified (principal); I10 Essential (primary) hypertension; Z87.891 Personal history of nicotine dependence